=== PATIENT | female | born 1930 | race Caucasian/White ===

== ENCOUNTER 2017-02-14 08:00 | Outpatient (CLI) | payer MEDICARE, BC ==
[2017-02-14 19:16] LABS: BASOPHILS # (AUTO) 0.1 10^3/uL (0.0-0.1); BASOPHILS % (AUTO) 0.7 %; EOSINOPHILS # (AUTO) 0.1 10^3/uL (0.0-0.7); EOSINOPHILS % (AUTO) 1.4 %; HGB - HEMOGLOBIN 13.4 g/dL (12.0-16.0); LYMPHOCYTES # (AUTO) 2.7 10^3/uL (1.5-3.5); LYMPHOCYTES % (AUTO) 33.8 %; MEAN CORPUSCULAR HEMOGLOBIN 28.8 pg (27.0-31.0); MEAN CORPUSCULAR HGB CONC 31.8 g/dL (32.0-36.0); MEAN CORPUSCULAR VOLUME 90.6 fL (81.0-99.0); MEAN PLATELET VOLUME 9.2 fL (7.9-10.8); MONOCYTES # (AUTO) 0.6 10^3/uL (0.0-1.0); MONOCYTES % (AUTO) 6.8 %; NEUTROPHILS # (AUTO) 4.6 10^3/uL (1.5-6.6); NEUTROPHILS % (AUTO) 57.3 %; NUCLEATED RED BLOOD CELLS AUTO 0.1 /100WBC; RED BLOOD COUNT 4.63 10^6/uL (4.20-5.40); RED CELL DISTRIBUTION WIDTH 14.4 % (12.0-15.0)
[2017-02-14 19:20] LABS: ALBUMIN/GLOBULIN RATIO 1.3 (1.0-2.2); BILIRUBIN,TOTAL 0.6 mg/dL (0.2-1.0); CALCIUM 9.5 mg/dL (8.5-10.3); CREATININE 0.9 mg/dL (0.4-1.0); POTASSIUM 4.3 mmol/L (3.5-5.0)
[2017-02-14 19:38] LABS: THYROID STIMULATING HORMONE 2.35 uIU/mL (0.34-5.60)
== END 2017-02-14 08:01 | disposition home or self-care (01) ==
LOC: LAB.WCP 08:00
PROVIDERS: ATTEND Family Medicine
DX: R41.3 Other amnesia (principal); E03.9 Hypothyroidism, unspecified
CPT/HCPCS: 36415; 80053; 84439; 84443; 84481; 85025

== ENCOUNTER 2017-05-18 14:21 | Inpatient (IN) | payer MEDICARE, BC ==
--- NOTE | 2017-05-18 14:48 | ED Physician Documentation ---
PD HPI LOWER EXT INJURY - Stated complaint Stated Complaint: FALL LT HIP PX - Chief complaint Chief Complaint: Ext Problem - History obtained from History obtained from: Patient, Family () - History of Present Illness PD HPI LOW EXT INJURY LOCATION: Left, Hip Type of injury: Fall Where injury occurred: Street (she was walking from car into a business and tripped, falling to left hip. Denies other injury.) Timing - onset: How many minutes ago (30), Today Timing - duration: Minutes (30) Timing - details: Abrupt onset, Still present Worsened by: Moving, Palpating, Other (unable to put weight onto leg due to the pain) Associated symptoms: No: Weakness, Numbness Similar symptoms before: Has not had sx before Recently seen: Not recently seen Review of Systems Constitutional: denies: Fever, Chills Nose: denies: Rhinorrhea / runny nose, Congestion Throat: denies: Sore throat Cardiac: denies: Chest pain / pressure, Palpitations Respiratory: denies: Dyspnea, Cough GI: denies: Abdominal Pain, Nausea, Vomiting : denies: Dysuria, Frequency Skin: denies: Rash, Lesions, Abrasion (s), Laceration (s) Musculoskeletal: reports: Extremity pain. denies: Neck pain, Back pain Neurologic: denies: Generalized weakness, Focal weakness, Numbness, Altered mental status, Headache, Head injury Endocrine: denies: Easy bruising / bleeding Immunocompromised: denies: Immunocompromised PD PAST MEDICAL HISTORY - Past Medical History Cardiovascular: None Neuro: None Endocrine/Autoimmune: HyPOthyroidism GI: Hemorrhoids, Diverticulitis HEENT: None Musculoskeletal: Osteoarthritis - Past Surgical History Past Surgical History: Yes General: Cholecystectomy, Appendectomy, Bowel surgery Ortho: Knee replacement /[employer]UV[employer] LIAISON: Hysterectomy - Present Medications Home Medications: Ambulatory Orders Medication Instructions Recorded Confirmed Levothyroxine Sodium [Levoxyl] 75 mcg PO DAILY 08/14/13 05/18/17 Multivitamin [Multi-Vitamin Daily] 1 mg PO DAILY 04/07/14 05/18/17 - Allergies Allergies/Adverse Reactions: Allergies Allergy/AdvReac Type Severity Reaction Status Date / Time codeine AdvReac Intermediate gi problems Verified 05/18/17 14:32 - Social History Does the pt smoke?: No Smoking Status: Never smoker Does the pt drink ETOH?: No Does the pt have substance abuse?: No - Family History Family history: reports: Non contributory - Immunizations Immunizations are current?: Yes - POLST Patient has POLST: No PD ED PE NORMAL - Vitals Vital signs reviewed: Yes - General General: Alert and oriented X 3, No acute distress, Well developed/nourished - HEENT HEENT: Atraumatic, Pharynx benign - Neck Neck: Supple, no meningeal sign, No adenopathy - Cardiac Cardiac: RRR, No murmur - Respiratory Respiratory: Clear bilaterally, Other (no chestwall tenderness. ) - Abdomen Abdomen: Soft, Non tender - Female Female : Deferred - Rectal Rectal: Deferred - Back Back: No CVA TTP, No spinal TTP - Derm Derm: Normal color, Warm and dry - Extremities Extremities: No edema, No calf tenderness / cord, Other (Left lateral and posterior hip tenderness. Some ROM of the hip but hurts with movement. No obvious deformity. ) - Neuro Neuro: Alert and oriented X 3 (but some short term memory deficit c/w mild dementia. ), No motor deficit, Normal speech Eye Opening: Spontaneous Motor: Obeys Commands Verbal: Oriented GCS Score: 15 - Psych Psych: Normal mood, Normal affect Results - Vitals Vitals: Vital Signs - 24 hr 05/18/17 05/18/17 05/18/17 14:28 16:20 16:21 Temperature 36.4 C L Heart Rate 95 85 Respiratory 24 16 Rate Blood Pressure 215/160 H 152/85 H O2 Saturation 94 86 L 97 05/18/17 05/18/17 05/18/17 17:12 17:57 18:16 Temperature Heart Rate Respiratory Rate Blood Pressure O2 Saturation 97 96 97 Oxygen O2 Source Nasal cannula - Labs Labs: Laboratory Tests 05/18/17 05/18/17 05/18/17 15:23 15:23 15:23 WBC 8.5 RBC 4.62 Hgb 13.1 Hct 41.3 MCV 89.3 MCH 28.4 MCHC 31.8 L RDW 14.0 Plt Count 225 MPV 9.0 Neut # 5.7 Lymph # 2.1 Shackelford # 0.5 Eos # 0.1 Baso # 0.1 Absolute Nucleated RBC 0.01 Nucleated RBC % 0.1 PT 10.7 INR 0.9 APTT 26.1 Sodium 138 Potassium 3.9 Chloride 105 Carbon Dioxide 25 Anion Gap 8.0 BUN 12 Creatinine 0.9 Estimated GFR (MDRD) 60 L Glucose 93 Calcium 9.9 Magnesium 2.3 Total Bilirubin 0.4 AST 29 ALT 20 Alkaline Phosphatase 73 Total Protein 7.2 Albumin 4.2 Globulin 3.0 Albumin/Globulin Ratio 1.4 Lipase 24 - Rads (name of study) left femur Radiology: Prelim report reviewed (impacted femoral neck (subcapital) fracture, nondisplaced. ), EMP read contemporaneously pelvic CT Radiology: Prelim report reviewed (femoral neck fx, no pelvic fractures. ) PD MEDICAL DECISION MAKING - ED course Complexity details: reviewed results, re-evaluated patient, considered differential (Concern for hip fracture. She is also hurting in the posterior aspect of the hip and pelvis so I consider ramus or sacral fracture as well. I did a CT of the pelvis which did not show any other fractures. The terminal neck has a subcapital impacted fracture with nondisplacement and non- angulation. The patient is usually very active and healthy. Her says she has a little bit of dementia and is difficult for her to stay sedentary. As such fixation of the fracture will be appropriate and they are agreeable to this. I talked with Dr. Ayoub who is on-call for orthopedics and he defers to the hospitalist. I talked with Dr. Lemos who will admit the patient. Dr. Ayoub' s intention is to do surgery 730 tomorrow morning.), d/w patient Departure - Departure Disposition: 66 [facility] DC/Xfer Clinical Impression: Fall from slip, trip, or stumble Qualifiers: Encounter type: initial encounter Qualified Code(s): W01.0XXA - Fall on same level from slipping, tripping and stumbling without subsequent striking against object, initial encounter Femoral neck fracture Qualifiers: Encounter type: initial encounter Fracture type: closed Laterality: left Qualified Code(s): S72.002A - Fracture of unspecified part of neck of left femur , initial encounter for closed fracture Condition: Stable
[2017-05-18] MEDS ORDERED: HYDROmorphone 1 MG/ML SYRINGE IVP STA ×2 (15:05→15:52)
[2017-05-18] MEDS ORDERED: KETOROLAC 60 MG/2 ML VIAL IVP STA (15:53)
--- NOTE | 2017-05-18 16:33 | CT Report ---
EXAM: CT BONY PELVIS WITHOUT CONTRAST EXAM DATE: 05/18/2017 04:05 PM. CLINICAL HISTORY: Fall with pain to left ramus/pelvis. COMPARISON: None. TECHNIQUE: Thin-section axial images were acquired of the pelvis without contrast. Post-processing: C oronal and sagittal reformats. Other: None. In accordance with CT protocol optimization, one or more of the following dose reduction techniques w ere utilized for this exam: automated exposure control, adjustment of mA and/or KV based on patient s ize, or use of iterative reconstructive technique. FINDINGS: Bones: There is impacted left subcapital femoral neck fracture. No other focal bony abnormalities are seen. Sacroiliac Joints: No widening, erosions, or sclerosis. Symphysis Pubis: There is mild osteitis pubis. Right Hip: No evidence of dislocation. No significant degenerative disease. Left Hip: No evidence of dislocation. No significant degenerative disease. Musculature: Normal. No fatty atrophy. Pelvic Cavity: The visualized bowel, bladder, and reproductive organs are unremarkable on this noncon trast exam. Other: No lymphadenopathy. No free air or free fluid. The other visualized soft tissues are unremarka ble. IMPRESSION: There is impacted left subcapital femoral neck fracture. No evidence of dislocation. [facility] Referring Provider Line: [phone] SITE ID: [id number]
--- NOTE | 2017-05-18 16:36 | XRAY Report ---
EXAM: LEFT FEMUR RADIOGRAPHY EXAM DATE: 05/18/2017 03:48 PM. CLINICAL HISTORY: Fall, pain COMPARISON: None. TECHNIQUE: 2 views. FINDINGS: Bones: There is impacted subcapital femoral neck fracture. No evidence of distal fracture. Joints: No evidence of dislocation. Soft Tissues: Normal. No soft tissue swelling. IMPRESSION: 1. Impacted subcapital femoral neck fracture. 2. No evidence of distal fracture. [facility] Referring Provider Line: [phone] SITE ID: [id number]
[2017-05-18] MEDS ORDERED: ONDANSETRON 4 MG/2 ML VIAL IVP STA ×2 (16:45→17:29)
[2017-05-18] MEDS ORDERED: SODIUM CHLORIDE 0.9% 1,000 ML IV ONE (17:30)
[2017-05-18 17:39] LABS: BASOPHILS # (AUTO) 0.1 10^3/uL (0.0-0.1); BASOPHILS % (AUTO) 0.6 %; EOSINOPHILS # (AUTO) 0.1 10^3/uL (0.0-0.7); EOSINOPHILS % (AUTO) 1.4 %; HGB - HEMOGLOBIN 13.1 g/dL (12.0-16.0); LYMPHOCYTES # (AUTO) 2.1 10^3/uL (1.5-3.5); MEAN CORPUSCULAR HEMOGLOBIN 28.4 pg (27.0-31.0); MEAN CORPUSCULAR HGB CONC 31.8 g/dL (32.0-36.0); MEAN CORPUSCULAR VOLUME 89.3 fL (81.0-99.0); MONOCYTES # (AUTO) 0.5 10^3/uL (0.0-1.0); MONOCYTES % (AUTO) 6.5 %; NEUTROPHILS # (AUTO) 5.7 10^3/uL (1.5-6.6); NEUTROPHILS % (AUTO) 66.5 %; PLT - PLATELET COUNT 225 10^3/uL (130-450); RED BLOOD COUNT 4.62 10^6/uL (4.20-5.40); WHITE BLOOD COUNT 8.5 x10^3/uL (4.8-10.8)
[2017-05-18 17:46] LABS: INR 0.9 (0.8-1.2); PT - PROTHROMBIN TIME 10.7 secs (9.9-12.6)
[2017-05-18 17:51] LABS: ALBUMIN 4.2 g/dL (3.2-5.5); ALBUMIN/GLOBULIN RATIO 1.4 (1.0-2.2); BILIRUBIN,TOTAL 0.4 mg/dL (0.2-1.0); CALCIUM 9.9 mg/dL (8.5-10.3); CREATININE 0.9 mg/dL (0.4-1.0); MAGNESIUM 2.3 mg/dL (1.7-2.8); TOTAL PROTEIN 7.2 g/dL (6.7-8.2)
[2017-05-18] MEDS ORDERED: ACETAMINOPHEN 325 MG TABLET PO PRN (18:10)
[2017-05-18] MEDS ORDERED: SODIUM CHLORIDE FLUSH 0.9% 10 ML SYRINGE IVP PRN (18:10)
[2017-05-18] MEDS ORDERED: oxyCODONE 5 MG TABLET PO PRN (18:10)
[2017-05-18] MEDS ORDERED: ONDANSETRON 4 MG/2 ML VIAL IVP PRN (18:10)
[2017-05-18] MEDS ORDERED: KETOROLAC 15 MG/ML VIAL IVP PRN (18:18)
--- NOTE | 2017-05-18 18:19 | HISTORY & PHYSICAL EXAMINATION ---
Chief Complaint - Chief Complaint Chief Complaint: fall and left hip pain History of Present Illness - Admitted From Admitted From:: ER - History Obtained From History obtained from: pt's Exam Limitations: pt's some confusion - History of Present Illness HPI Comment/Other: This is a 87-year-old female with a past medical history significant for Dementia, Anxiety, hypothyroidism, osteoarthritis, who present ER for evaluation and treatment for injury from a fall at home. Pt is confused after pain medication, dilaudid was given. She can not provide medical history at this moment. I call pt's . He report pt had s trip then she had a fall on her left side hip area. There is no other injury. Pt can not walk after fall with extremely pain at her left hip and left femur. The report pt did not have any cardiac history, no hx of OR, CAD, or any stents. Her report she had very short memory as her sister, Otherwise she is healthy. Pt's afebrile, Lab test is unremarkable. CT of pelvis, Xray of femur reveals impacted subcapital femoral neck fracture. Dr. Ayoub is called. pt is planing to have surgery on tomorrow morning. 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 - Substance History Use: Uses substance without health or social issues: NONE Abuse: Recurrent use of substance despite neg consequences: NONE - POLST Patient has POLST: No POLST Status: Full Code Meds/Allgy - Home Medications Home Medications: Ambulatory Orders Medication Instructions Recorded Confirmed Levothyroxine Sodium [Levoxyl] 75 mcg PO QDAC 08/14/13 05/19/17 Multivitamin [Multi-Vitamin Daily] 1 tab PO DAILY 04/07/14 05/19/17 ALPRAZolam [Alprazolam] 0.25 mg PO BID PRN 05/19/17 05/19/17 Donepezil [Aricept] 5 mg PO DAILY 05/19/17 05/19/17 - Allergies Allergies/Adverse Reactions: Allergies Allergy/AdvReac Type Severity Reaction Status Date / Time codeine AdvReac Intermediate gi problems Verified 05/18/17 14:32 Review of Systems - Constitutional Constitutional: denies: Fever, Chills - Eyes Eyes: denies: Pain, Irritation, Amaurosis, Blurred vision, Field loss, Vision loss - Ears, Nose & Throat Ears, Nose & Throat: denies: Ear pain, Nasal discharge, Nosebleeds, Sore throat , Mouth lesions, Bleeding gums - Cardiovascular Cariovascular: denies: Irregular heart rate, Palpitations, Chest pain, Edema, Lightheadedness, Syncope, Exertional dyspnea, Decr. exercise tolerance - Respiratory Respiratory: denies: Cough, Sputum production, Wheezing, Snoring, Hemoptysis, Orthopnea, SOB at rest, SOB with exertion - Gastrointestinal Gastrointestinal: denies: Abdominal pain, Abdominal distention, Constipation, Diarrhea, Change in bowel habits, Rectal bleeding, Bloody stools, Nausea, Vomiting, Akhil blood emesis - Genitourinary Genitourinary: denies: Dysuria, Hematuria, Flank pain - Musculoskeletal Musculoskeletal: reports: Limited range of motion, Joint pain. denies: Muscle pain, Back pain, Muscle aches, Stiffness - Integumentary Integumentary: denies: Rash, Lesions, Dryness - Neurological Neurological: reports: Memory problems. denies: General weakness, Focal weakness, Headache, Dizziness, Numbness, Abnormal gait, Seizures, Incoordination , Slurred speech - Psychiatric Psychiatric: reports: Anxiety. denies: Depression, Suicidal, Delusions, Hallucinations, Homicidal - Endocrine Endocrine: denies: Polyuria, Polydypsia - Hematologic/Lymphatic Hematologic/Lymphatic: denies: Anemia, Lymphadenopathy, Bleeding tendencies Exam - Vital Signs Reviewed Vital Signs: Yes Vital Signs: Vital Signs x48h Temp Pulse Resp BP Pulse Ox 05/18/17 18:16 97 05/18/17 17:57 96 05/18/17 17:12 97 05/18/17 16:21 97 05/18/17 16:20 85 16 152/85 H 86 L 05/18/17 14:28 36.4 C L 95 24 215/160 H 94 - Physical Exam General Appearance: positive: No acute distress, Alert. negative: Lethargic Eyes Bilateral: positive: Normal inspection, PERRL, No lid inflammation, Conjunctivae nml ENT: positive: ENT inspection nml, Pharynx nml, No signs of dehydration. negative: Purulent nasal drainage, Pharyngeal erythema, Oral lesions Neck: positive: Nml inspection, Thyroid nml, No JVD, Trachea midline. negative : Thyromegaly, Lymphadenopathy (R), Lymphadenopathy (L), Stiff neck, Carotid bruit, Swelling/bruising, Tracheal deviation Respiratory: positive: Chest non-tender, No respiratory distress, Breath sounds nml. negative: Wheezes, Rales, Rhonchi Cardiovascular: positive: Regular rate & rhythm, No murmur, No gallop. negative : Irregularly irregular, Extrasystoles, Tachycardia, Bradycardia, Systolic murmur, Diastolic murmur Peripheral Pulses: positive: 2+ Abdomen: positive: Non-tender, No organomegaly, Nml bowel sounds, No distention. negative: Tenderness, Guarding, Rebound Back: positive: Nml inspection. negative: CVA tenderness (R), CVA tenderness (L ) Skin: positive: Color nml, No rash, Warm, Dry. negative: Cyanosis, Diaphoresis , Pallor Extremities: positive: Non-tender. negative: Calf tenderness, Joint swelling, Lyric's sign/cords Neurologic/Psychiatric: positive: Sensation nml. negative: Weakness, Sensory loss, Facial droop, Slurred/abnml speech, Depressed mood/affect Conclusion/Plan - Problem List (1) Femoral neck fracture Conclusion/Plan: from fall, orthopedics surgeon is consulted, pt is planning to have surgery on tomorrow morning pain control NPO after midnight IVF follow up the surgery Qualifiers: Encounter type: initial encounter Fracture type: closed Laterality: left Qualified Code(s): S72.002A - Fracture of unspecified part of neck of left femur, initial encounter for closed fracture (2) Dementia Conclusion/Plan: stable, resume of home Aricept vital and neuro check (3) Anxiety Conclusion/Plan: resume home Ativan monitor pt, adjust meds as needed (4) Hypothyroidism Conclusion/Plan: resume home and test TSH, and follow up (5) Osteoarthritis Conclusion/Plan: stable, pain control. (6) DVT prophylaxis Conclusion/Plan: SCD now. After surgery, will put Aspirin 325 mg bid to pt (7) Full code status Conclusion/Plan: called pt's , it is confirmed by her pt has full code status - Lab Results Fish Bones: 05/19/17 05:27 05/19/17 05:27 Core Measures - Anticipated LOS I expect patient to be DC'd or transferred within 96 hours.: Yes
--- NOTE | 2017-05-18 18:20 | XRAY Preliminary Report ---
Exam: XR CHEST 1 VIEW X-RAY IMPRESSION: 1. Nonspecific bronchial wall thickening could represent bronchitis or reactive airways disease. 2. No effusions or pneumothorax. No focal consolidation. [facility] SITE ID: [id number]
--- NOTE | 2017-05-18 18:22 | PROVIDER PROGRESS NOTE ---
Subjective - Prog Note Date Prog Note Date: 05/18/17 Prog Note Time: 18:20 - Subjective Subjective: Patient had a GLF, sustaining injury to left side. Unable to stand to stand or weight bear on left side. No distal weakness/numbness. Taken to ED where XR show an impacted left femoral neck hip fracture. Objective - Vital Signs/Intake & Output Vital Signs: Vital Signs x48h Temp Pulse Resp BP Pulse Ox 05/18/17 18:16 97 05/18/17 17:57 96 05/18/17 17:12 97 05/18/17 16:21 97 05/18/17 16:20 85 16 152/85 H 86 L 05/18/17 14:28 36.4 C L 95 24 215/160 H 94 - Lab Results Fish Bones: 05/18/17 15:23 05/18/17 15:23 Other Labs: Lab Results x24hrs 05/18/17 05/18/17 05/18/17 Range/Units 15:23 15:23 15:23 WBC 8.5 (4.8-10.8) x10^3/uL RBC 4.62 (4.20-5.40) 10^6/uL Hgb 13.1 (12.0-16.0) g/dL Hct 41.3 (37.0-47.0) % MCV 89.3 (81.0-99.0) fL MCH 28.4 (27.0-31.0) pg MCHC 31.8 L (32.0-36.0) g/dL RDW 14.0 (12.0-15.0) % Plt Count 225 (130-450) 10^3/uL MPV 9.0 (7.9-10.8) fL Neut # 5.7 (1.5-6.6) 10^3/uL Lymph # 2.1 (1.5-3.5) 10^3/uL Bibb # 0.5 (0.0-1.0) 10^3/uL Eos # 0.1 (0.0-0.7) 10^3/uL Baso # 0.1 (0.0-0.1) 10^3/uL Absolute Nucleated RBC 0.01 x10^3/uL Nucleated RBC % 0.1 /100WBC PT 10.7 (9.9-12.6) secs INR 0.9 (0.8-1.2) APTT 26.1 (24.9-33.3) secs Sodium 138 (135-145) mmol/L Potassium 3.9 (3.5-5.0) mmol/L Chloride 105 (101-111) mmol/L Carbon Dioxide 25 (21-32) mmol/L Anion Gap 8.0 (6-13) BUN 12 (6-20) mg/dL Creatinine 0.9 (0.4-1.0) mg/dL Estimated GFR (MDRD) 60 L (>89) Glucose 93 (70-100) mg/dL Calcium 9.9 (8.5-10.3) mg/dL Magnesium 2.3 (1.7-2.8) mg/dL Total Bilirubin 0.4 (0.2-1.0) mg/dL AST 29 (10-42) IU/L ALT 20 (10-60) IU/L Alkaline Phosphatase 73 (42-121) IU/L Total Protein 7.2 (6.7-8.2) g/dL Albumin 4.2 (3.2-5.5) g/dL Globulin 3.0 (2.1-4.2) g/dL Albumin/Globulin Ratio 1.4 (1.0-2.2) Lipase 24 (22-51) U/L - Diagnostic Imaging Diagnostic Imaging Comments: XR show impacted left femoral neck hip fracture - Other Results/Comments Other Results/Comments: EXAM: Painful left hip motion. Minimal leg shortening or malrotation. Moves toes ok. Sensation intact. Good cap filling Assessment/Plan - Problem List (1) Femoral neck fracture Impression: PLAN: after medical evaluation and stabilization, plan multiple cannulated screw fixation of left hip fracture in AM. Will schedule Mon AM. Will discuss options with patient in AM and obtain surgical consent preop. Qualifiers: Encounter type: initial encounter Fracture type: closed Laterality: left Qualified Code(s): S72.002A - Fracture of unspecified part of neck of left femur, initial encounter for closed fracture
--- NOTE | 2017-05-18 18:59 | XRAY Report ---
EXAM: CHEST RADIOGRAPHY EXAM DATE: 05/18/2017 06:01 PM. CLINICAL HISTORY: Hip fracture/fall. COMPARISON: None. TECHNIQUE: 1 view. FINDINGS: Lungs/Pleura: No focal opacities evident. No pleural effusion. No pneumothorax. Bronchial wall thicke blake. Mediastinum: Within exam limitations, the cardiomediastinal contour is normal. Other: None. IMPRESSION: 1. Nonspecific bronchial wall thickening could represent bronchitis or reactive airways disease. 2. No effusions or pneumothorax. No focal consolidation. [facility] Referring Provider Line: [phone] SITE ID: [id number]
[2017-05-18] MEDS: SODIUM CHLORIDE 0.9% 1,000 ML IV SCH (19:09)
[2017-05-18 19:11] LABS: BILIRUBIN,URINE NEGATIVE (NEGATIVE); GLUCOSE, URINE (UA) NEGATIVE (NEGATIVE); KETONES,URINE (UA) NEGATIVE (NEGATIVE); LEUKOCYTE ESTERASE, URINE NEGATIVE (NEGATIVE); NITRITE,URINE NEGATIVE (NEGATIVE); OCCULT BLOOD,URINE TRACE-LYSE (NEGATIVE); PROTEIN,URINE NEGATIVE (NEGATIVE); UROBILINOGEN,URINE 0.2 (NORMAL) E.U./dL (NORMAL)
[2017-05-18 19:12] LABS: CLARITY,URINE CLEAR (CLEAR)
[2017-05-18] MEDS ORDERED: PROMETHAZINE INJ 12.5 MG in SODIUM CHLORIDE 0.9% 50 ML IV PRN (19:40)
[2017-05-18 20:16] LABS: THYROID STIMULATING HORMONE 2.55 uIU/mL (0.34-5.60)
[2017-05-18 20:18] LABS: FREE T4 (FREE THYROXINE) 1.05 ng/dL (0.58-1.64)
[2017-05-18] MEDS ORDERED: ZIPRASIDONE 20 MG VIAL IM PRN (21:16)
[2017-05-18] MEDS: SODIUM CHLORIDE FLUSH 0.9% 10 ML SYRINGE IVP SCH (21:25)
[2017-05-18] MEDS: MORPHINE 2 MG/ML CARPUJECT IVP PRN (21:25)
[2017-05-18] MEDS: LORazepam 2 MG/ML VIAL IVP PRN (21:25)
[2017-05-19] MEDS: SODIUM CHLORIDE 0.9% 1,000 ML IV SCH (05:01)
[2017-05-19 05:59] LABS: BASOPHILS # (AUTO) 0.1 10^3/uL (0.0-0.1); BASOPHILS % (AUTO) 0.9 %; EOSINOPHILS # (AUTO) 0.1 10^3/uL (0.0-0.7); EOSINOPHILS % (AUTO) 1.2 %; HGB - HEMOGLOBIN 11.8 g/dL (12.0-16.0); LYMPHOCYTES # (AUTO) 1.7 10^3/uL (1.5-3.5); LYMPHOCYTES % (AUTO) 15.8 %; MEAN CORPUSCULAR HEMOGLOBIN 28.7 pg (27.0-31.0); MEAN CORPUSCULAR HGB CONC 32.5 g/dL (32.0-36.0); MEAN CORPUSCULAR VOLUME 88.2 fL (81.0-99.0); MEAN PLATELET VOLUME 8.5 fL (7.9-10.8); MONOCYTES # (AUTO) 0.6 10^3/uL (0.0-1.0); MONOCYTES % (AUTO) 5.4 %; NEUTROPHILS # (AUTO) 8.4 10^3/uL (1.5-6.6); NEUTROPHILS % (AUTO) 76.7 %; PLT - PLATELET COUNT 168 10^3/uL (130-450); RED BLOOD COUNT 4.12 10^6/uL (4.20-5.40); RED CELL DISTRIBUTION WIDTH 13.8 % (12.0-15.0); WHITE BLOOD COUNT 10.9 x10^3/uL (4.8-10.8)
[2017-05-19 06:05] LABS: ALBUMIN 3.2 g/dL (3.2-5.5); ALBUMIN/GLOBULIN RATIO 1.1 (1.0-2.2); BILIRUBIN,TOTAL 0.9 mg/dL (0.2-1.0); CALCIUM 8.8 mg/dL (8.5-10.3); CREATININE 0.8 mg/dL (0.4-1.0); TOTAL PROTEIN 6.1 g/dL (6.7-8.2)
[2017-05-19] MEDS: SODIUM CHLORIDE FLUSH 0.9% 10 ML SYRINGE IVP SCH ×3 (07:04→21:57)
[2017-05-19] MEDS ORDERED: ceFAZolin 2 GM/50 ML 2 GM/50 ML BAG IV SCH (08:00)
[2017-05-19] MEDS ORDERED: BUPIVACAINE 0.25%-EPI 1:200000 PF 30 ML VIAL SUBQ ONE ×2 (08:51→09:55)
[2017-05-19] MEDS ORDERED: LEVOTHYROXINE 75 MCG TABLET PO SCH (09:00)
--- NOTE | 2017-05-19 09:16 | CONSULTATION NOTE ---
DATE OF SERVICE: 05/19/2017 Physician: Joo Ayoub MD ORTHOPEDIC CONSULTATION REFERRING PHYSICIAN: Dr. Sheldon of the emergency room. HISTORY OF PRESENT ILLNESS: The patient is an 87-year-old, woman who apparently had a ground level fall on the day of her admission, injuring her left hip. She was unable to stand or weight bear on her left lower extremity. There was no loss of consciousness or other injuries. No prior problems with her hip. She was taken to the emergency room here at [facility][1], where her evaluation included x-rays showing an impacted transverse left femoral neck fracture. This was confirmed with a followup CT scan of her pelvis. The patient, previous to this injury, was ambulatory and living with her at home. There has been no distal weakness and numbness in the lower extremity. PHYSICAL EXAMINATION: The patient is resting comfortably in bed. She does have some tenderness on palpation over the left anterior groin, less tenderness laterally about the left hip. Hip range of motion is painful as well. There is no obvious shortening of her left lower extremity. The patient moves her toes well. Sensation intact throughout the lower extremity. Good capillary filling noted. X-rays that were taken of her left hip do show a minimally displaced impacted transverse femoral neck fracture of her left hip. ASSESSMENT 1. Closed, nondisplaced, impacted left femoral neck hip fracture. 2. History of hypothyroidism. PLAN: I discussed treatment options with the patient and her . They are in agreement that we should proceed with surgical intervention. Our plan then would be to put in several short threaded cannulated screws to fix her fracture in place. Risks and benefits of surgery including infection, blood loss, nerve damage, malunion, nonunion, avascular necrosis of the femoral head and lower extremity deep venous thromboses were discussed. They appear to understand the potential risks and benefits. All questions were answered. Consent has been signed. The leg has been marked. Plan then on proceeding with surgery later this morning. TD: 05/19/2017 10:14
[2017-05-19] MEDS ORDERED: LACTATED RINGERS 1,000 ML IV ONE ×3 (09:42→10:33)
[2017-05-19] MEDS ORDERED: ceFAZolin 1 GM VIAL IV ONE (09:55)
[2017-05-19] MEDS ORDERED: PROPOFOL 200 MG/20 ML VIAL IVP ONE (09:55)
[2017-05-19] MEDS ORDERED: ONDANSETRON 4 MG/2 ML VIAL IVP ONE (09:55)
[2017-05-19] MEDS ORDERED: DEXAMETHASONE 4 MG/ML VIAL IVP ONE (09:55)
[2017-05-19] MEDS ORDERED: ePHEDrine 50 MG/ML AMP IVP ONE (09:55)
[2017-05-19] MEDS ORDERED: fentaNYL 100 MCG/2 ML VIAL IVP ONE (09:55)
--- NOTE | 2017-05-19 10:06 | OPERATIVE REPORT ---
Operative Report - General Admit Date: 05/18/17 Procedure Date: 05/19/17 Planned Procedure: Multiple cannulated screw fixationof left hip fracture Pre-Op Diagnosis: Impacted left femoral neck hip fracture Procedure Performed: Closed reduction and multiple cannulated screw fixation of left hip fracture Post Op Diagnosis: Same - Procedure Note Primary Surgeon: David Ayoub Anesthesia Provider: Monika Bain Anesthesia Technique: General ET tube, General LMA IV Fluids (mL): 500 Estimated Blood Loss (mL): 20 Complications: None
[2017-05-19] MEDS: ACETAMINOPHEN 1,000 MG/100 ML 100 ML IV PRN (10:07)
[2017-05-19] MEDS ORDERED: PROCHLORPERAZINE 10 MG/2 ML VIAL IVP PRN (10:07)
[2017-05-19] MEDS ORDERED: SODIUM CHLORIDE 0.9% 1,000 ML IV SCH (11:00)
--- NOTE | 2017-05-19 11:01 | XRAY Report ---
DATE OF SERVICE: 05/19/2017 INTRAOPERATIVE LEFT HIP: 05/19/2017 CLINICAL INDICATION: Hip pinning. FINDINGS: Two intraoperative matrix view of the left hip demonstrate two screws transfixing the impacted left femoral neck fracture. Ten seconds of fluoroscopy time was provided to Dr. Ayoub; two spot images obtained. IMPRESSION: INTRAOPERATIVE IMAGING OF LEFT HIP FRACTURE FIXATION. TD: 05/19/2017 12:00
--- NOTE | 2017-05-19 12:16 | PROCEDURE REPORT ---
DATE OF SERVICE: 05/19/2017 Physician: Joo Ayoub MD DATE: 05/19/2017 PREOPERATIVE DIAGNOSIS: Impacted left femoral neck hip fracture. POSTOPERATIVE DIAGNOSIS: Impacted left femoral neck hip fracture. PROCEDURE PERFORMED: Closed reduction and multiple cannulated screw fixation of left hip fracture. SURGEON: Joo Ayoub MD. ANESTHESIA: General with LMA. DESCRIPTION OF PROCEDURE: The patient was taken to the operating room on the morning of 05/19/2017, where she was placed under a general anesthetic with LMA without any problems. She was then transferred supine onto the fracture table. Her right unfractured lower extremity was then widely flexed and abducted on the right side and held in the well leg zamora. Her left fractured extremity was then placed in the longitudinal traction with the leg internally rotated about 20 degrees. Fluoroscopic views in AP and lateral projection showed good reduction of her fracture and good visualization of the proximal femur and hip joint. We then prepped and draped the lateral aspect of her left hip in the usual fashion for our procedure. A 2 cm skin incision was then made over the lateral proximal thigh. Using fluoroscopic visualization, we were able to position and advanced a threaded tip guide pin with power up to the proximal femur and femoral neck and into the femoral head within a few millimeters of the subchondral bone. The position of the pin was checked and confirmed with the fluoroscopic views in AP and lateral projection. Satisfied with the placement of our first guide pin, we then used the multiple pin guide to place our second threaded tip guidewire in the near parallel alignment. Both superior and slightly anterior to our first pin. Fluoroscopic views showed again that both pins now are in a good position and in the proper depth to within a few millimeters of the subchondral bone. The direct measuring guide was used and we determined we did use a short threaded 16 mm of length 7.3 mm cannulated screw that was 105 mm in length; a second cannulated screw, again, a short threaded, 16 mm length, 7.3 mm cannulated screw x100 mm in total length. We used the cannulated drill to drill over inserted guide pins to perforate the lateral femoral cortex and both pins. Finally, the appropriate screw was then threaded over our guide pin. We obtained good purchase in the more superior and anterior screw. Still obtained reasonable purchase with the more inferior screw as well. X-rays taken in AP and lateral projection, showed again a good position of our fracture with good alignment. Satisfactory placement of hardware as well. We then removed our guide pins from the tip screws. irrigated the wound thoroughly with saline. I then closed the wound in layers using 0 Vicryl to close the fascia henrique layer; 2-0 Vicryl in a very simple stitch to close the subcutaneous tissues; finally skin jesusita used to approximate the skin edge. We then washed the wounds and applied Xeroform gauze, fluffs and a Tegaderm dressing was applied. It should be noted before we did apply the dressing, we did inject approximately 12 mL of 0.25% Marcaine with epinephrine about the incision to help with postoperative pain control. The patient, after the wound was dressed, was then transferred off the fracture onto her bed and taken to recovery room in satisfactory condition. ESTIMATED BLOOD LOSS: 20 mL. REPLACEMENT: 500 mL Crystalloid. INTRAOPERATIVE COMPLICATIONS: None. PLAN: The patient may be ambulatory with walker, weightbearing as tolerated on her left lower extremity, likely transfer to a hip rehabilitation center in the next 2 days. TD: 05/19/2017 13:15
[2017-05-19] MEDS: ASPIRIN 325 MG TABLET PO SCH ×2 (14:19→21:57)
[2017-05-19] MEDS: DONEPEZIL 5 MG TABLET PO SCH (14:19)
[2017-05-19] MEDS: MULTIVITAMIN TABLET PO SCH (14:20)
[2017-05-19] MEDS: POLYETHYLENE GLYCOL 3350 17 GM PACKET PO SCH (14:20)
[2017-05-19] MEDS: FAMOTIDINE 20 MG TABLET PO SCH (14:20)
--- NOTE | 2017-05-19 15:09 | PROVIDER PROGRESS NOTE ---
Subjective - Prog Note Date Prog Note Date: 05/19/17 - Subjective Pt reports feeling: Improved Subjective: Pt had surgery on this morning. pt report her's pain is great improved. But pt has still some confusion. Pt denies other compliant but state she want to go home. Current Medications - Current Medications Current Medications: Active Medications Acetaminophen (Tylenol) 650 - 975 mg PO Q4HR PRN PRN Reason: PAIN Aspirin (Hao) 325 mg PO BID [facility] Last Admin: 05/19/17 14:19 Dose: 325 mg Docusate Sodium (Colace 100mg Capsule) 100 mg PO BID PRN PRN Reason: Constipation Donepezil HCl (Aricept) 5 mg PO DAILY [facility] Last Admin: 05/19/17 14:19 Dose: 5 mg Famotidine (Pepcid) 20 mg PO DAILY [facility] Last Admin: 05/19/17 14:20 Dose: Not Given Cefazolin Sodium/Dextrose (Ancef 2 Gm/50 Ml) 2 gm in 50 mls @ 100 mls/hr IV Q8H [facility] Stop: 05/20/17 00:29 Acetaminophen (Ofirmev) 100 mls @ 400 mls/hr IV Q6HR PRN PRN Reason: PAIN Last Admin: 05/19/17 10:07 Dose: 0 mls Sodium Chloride (Normal Saline 0.9%) 1,000 mls @ 100 mls/hr IV .Q10H [facility] Levothyroxine Sodium (Synthroid) 75 mcg PO QDAC [facility] Lorazepam (Ativan Inj (Vial)) 0.5 mg IVP Q2H PRN PRN Reason: Anxiety Last Admin: 05/18/17 21:25 Dose: 0.5 mg Morphine Sulfate (Morphine (Carpuject)) 2 mg IVP Q2HR PRN PRN Reason: Pain 8 to 10 Last Admin: 05/18/17 21:25 Dose: 2 mg Multivitamins (Theragran) 1 tab PO DAILYWM [facility] Last Admin: 05/19/17 14:20 Dose: Not Given Ondansetron HCl (Zofran Inj) 4 mg IVP Q6HR PRN PRN Reason: Nausea / Vomiting Last Admin: 05/18/17 19:09 Dose: 4 mg Oxycodone/Acetaminophen (Percocet 5 Mg/325 Mg) 1 tab PO Q4HR PRN PRN Reason: PAIN Polyethylene Glycol (Miralax) 17 gm PO DAILY [facility] Last Admin: 05/19/17 14:20 Dose: Not Given Prochlorperazine Edisylate (Compazine Inj) 10 mg IVP Q6HR PRN PRN Reason: Nausea / Vomiting Senna (Senokot) 17.2 mg PO Q12H PRN PRN Reason: Constipation Sodium Chloride (Normal Saline Flush 0.9%) 10 ml IVP Q8HR [facility] Last Admin: 05/19/17 14:21 Dose: Not Given Sodium Chloride (Normal Saline Flush 0.9%) 10 ml IVP PRN PRN PRN Reason: NEEDED PER PROVIDER ORDERS Sterile Water (Sterile Water) 10 ml IV ONCE PRN PRN Reason: TO BE USED A DILUENT Stop: 05/19/17 21:15 Ziprasidone (Geodon Im) 10 mg IM ONCE PRN PRN Reason: Agitation Stop: 05/19/17 21:15 Zolpidem Tartrate (Ambien) 5 mg PO QPM PRN PRN Reason: Insomnia Levothyroxine Sodium [Levoxyl] 75 mcg PO QDAC 08/14/13 Multivitamin [Multi-Vitamin Daily] 1 tab PO DAILY 04/07/14 ALPRAZolam [Alprazolam] 0.25 mg PO BID PRN 05/19/17 Donepezil [Aricept] 5 mg PO DAILY 05/19/17 Objective - Vital Signs/Intake & Output Reviewed Vital Signs: Yes Vital Signs: Vital Signs x48h Temp Pulse Resp BP Pulse Ox 05/19/17 13:57 36.5 C 95 19 149/76 H 05/19/17 13:14 36.3 C L 88 16 134/72 H 95 05/19/17 10:40 97 05/19/17 10:35 100 05/19/17 10:30 100 05/19/17 10:25 100 05/19/17 10:20 100 05/19/17 10:15 100 05/19/17 10:10 100 05/19/17 10:04 99 05/19/17 08:15 37.4 C 77 18 135/57 H 94 05/19/17 08:00 36.7 C 78 120/53 L 93 Intake & Output: Intake & Output 05/16/17 05/17/17 05/18/1726/18 23:59 23:59 23:59 23:59 Intake Total 1000 1226.667 Balance 1000 1226.667 - Objective General Appearance: positive: No acute distress, Alert. negative: Lethargic Eyes Bilateral: positive: Normal inspection, PERRL, No lid inflammation, Conjunctivae nml ENT: positive: ENT inspection nml, Pharynx nml, No signs of dehydration. negative: Purulent nasal drainage, Pharyngeal erythema, Oral lesions Neck: positive: Nml inspection, Thyroid nml, No JVD, Trachea midline. negative : Thyromegaly, Lymphadenopathy (R), Lymphadenopathy (L), Stiff neck, Carotid bruit, Swelling/bruising, Tracheal deviation Respiratory: positive: Chest non-tender, No respiratory distress, Breath sounds nml. negative: Wheezes, Rales, Rhonchi Cardiovascular: positive: Regular rate & rhythm, No murmur, No gallop. negative : Irregularly irregular, Extrasystoles, Tachycardia, Bradycardia, Systolic murmur, Diastolic murmur Peripheral Pulses: 2+ Radial (R), 2+ Radial (L), 2+ Dorsalis pedis (R), 2+ Dorsalis pedis (L) Abdomen: positive: Non-tender, No organomegaly, Nml bowel sounds, No distention. negative: Tenderness, Guarding, Rebound, Abnml bowel sounds Back: positive: Nml inspection. negative: CVA tenderness (R), CVA tenderness (L ) Skin: positive: Color nml, No rash, Warm, Dry. negative: Cyanosis, Diaphoresis , Pallor, Skin rash Extremities: positive: Non-tender, Full ROM, Nml appearance. negative: Calf tenderness, Joint swelling, Lyric's sign/cords Neurologic/Psychiatric: positive: Sensation nml. negative: Sensory loss, Facial droop, Slurred/abnml speech, Depressed mood/affect - Lab Results Fish Bones: 05/19/17 05:27 05/19/17 05:27 Other Labs: Lab Results x24hrs 05/19/17 05/19/17 05/19/17 Range/Units 05:27 05:27 05:27 WBC 10.9 H (4.8-10.8) x10^3/uL RBC 4.12 L (4.20-5.40) 10^6/uL Hgb 11.8 L (12.0-16.0) g/dL Hct 36.3 L (37.0-47.0) % MCV 88.2 (81.0-99.0) fL MCH 28.7 (27.0-31.0) pg MCHC 32.5 (32.0-36.0) g/dL RDW 13.8 (12.0-15.0) % Plt Count 168 (130-450) 10^3/uL MPV 8.5 (7.9-10.8) fL Neut # 8.4 H (1.5-6.6) 10^3/uL Lymph # 1.7 (1.5-3.5) 10^3/uL [place] # 0.6 (0.0-1.0) 10^3/uL Eos # 0.1 (0.0-0.7) 10^3/uL Baso # 0.1 (0.0-0.1) 10^3/uL Absolute Nucleated RBC 0.00 x10^3/uL Nucleated RBC % 0.0 /100WBC Sodium 138 (135-145) mmol/L Potassium 4.0 (3.5-5.0) mmol/L Chloride 105 (101-111) mmol/L Carbon Dioxide 25 (21-32) mmol/L Anion Gap 8.0 (6-13) BUN 13 (6-20) mg/dL Creatinine 0.8 (0.4-1.0) mg/dL Estimated GFR (MDRD) 68 L (>89) Glucose 108 H (70-100) mg/dL Calcium 8.8 (8.5-10.3) mg/dL Total Bilirubin 0.9 (0.2-1.0) mg/dL AST 83 H (10-42) IU/L ALT 67 H (10-60) IU/L Alkaline Phosphatase 60 (42-121) IU/L Troponin I (<0.49) ng/mL Total Protein 6.1 L (6.7-8.2) g/dL Albumin 3.2 (3.2-5.5) g/dL Globulin 2.9 (2.1-4.2) g/dL Albumin/Globulin Ratio 1.1 (1.0-2.2) TSH 1.30 (0.34-5.60) uIU/mL 05/18/17 Range/Units 18:40 WBC (4.8-10.8) x10^3/uL RBC (4.20-5.40) 10^6/uL Hgb (12.0-16.0) g/dL Hct (37.0-47.0) % MCV (81.0-99.0) fL MCH (27.0-31.0) pg MCHC (32.0-36.0) g/dL RDW (12.0-15.0) % Plt Count (130-450) 10^3/uL MPV (7.9-10.8) fL Neut # (1.5-6.6) 10^3/uL Lymph # (1.5-3.5) 10^3/uL [place] # (0.0-1.0) 10^3/uL Eos # (0.0-0.7) 10^3/uL Baso # (0.0-0.1) 10^3/uL Absolute Nucleated RBC x10^3/uL Nucleated RBC % /100WBC Sodium (135-145) mmol/L Potassium (3.5-5.0) mmol/L Chloride (101-111) mmol/L Carbon Dioxide (21-32) mmol/L Anion Gap (6-13) BUN (6-20) mg/dL Creatinine (0.4-1.0) mg/dL Estimated GFR (MDRD) (>89) Glucose (70-100) mg/dL Calcium (8.5-10.3) mg/dL Total Bilirubin (0.2-1.0) mg/dL AST (10-42) IU/L ALT (10-60) IU/L Alkaline Phosphatase (42-121) IU/L Troponin I < 0.04 (<0.49) ng/mL Total Protein (6.7-8.2) g/dL Albumin (3.2-5.5) g/dL Globulin (2.1-4.2) g/dL Albumin/Globulin Ratio (1.0-2.2) TSH (0.34-5.60) uIU/mL Assessment/Plan - Problem List (1) Femoral neck fracture Impression: (1) Femoral neck fracture Conclusion/Plan: pt has surgery on this morning. pt state her pain is well controlled. It seems pt is some confused may due to just post status of surgery. follow up surgeon's recommendation continue PT/OT pain control resume diet add DVT prophylaxis from fall, orthopedics surgeon is consulted, pt is planning to have surgery on tomorrow morning pain control NPO after midnight IVF follow up the surgery (2) Dementia Conclusion/Plan: confused neuro check stable, resume of home Aricept vital and neuro check (3) Anxiety Conclusion/Plan: resume home Ativan monitor pt, adjust meds as needed (4) Hypothyroidism Conclusion/Plan: TSH normal, continue home meds resume home and test TSH, and follow up (5) Osteoarthritis Conclusion/Plan: stable, pain control. Qualifiers: Encounter type: initial encounter Fracture type: closed Laterality: left Qualified Code(s): S72.002A - Fracture of unspecified part of neck of left femur, initial encounter for closed fracture
[2017-05-19] MEDS: LORazepam 2 MG/ML VIAL IVP PRN ×3 (16:39→23:59)
[2017-05-19] MEDS: ceFAZolin 2 GM/50 ML 2 GM/50 ML BAG IV SCH ×2 (16:39→23:58)
[2017-05-19] MEDS: MORPHINE 2 MG/ML CARPUJECT IVP PRN (20:47)
[2017-05-19] MEDS ORDERED: ZIPRASIDONE 20 MG VIAL IM ONE (21:26)
[2017-05-19] MEDS ORDERED: WATER FOR INJECTION,STERILE 10 ML ONE (21:28)
[2017-05-19] MEDS: SODIUM CHLORIDE FLUSH 0.9% 10 ML SYRINGE IVP PRN (23:57)
[2017-05-20] MEDS: SODIUM CHLORIDE FLUSH 0.9% 10 ML SYRINGE IVP PRN (01:18)
[2017-05-20] MEDS: MORPHINE 2 MG/ML CARPUJECT IVP PRN ×3 (01:18→22:05)
[2017-05-20] MEDS: SODIUM CHLORIDE FLUSH 0.9% 10 ML SYRINGE IVP SCH ×3 (06:22→20:20)
[2017-05-20] MEDS: LEVOTHYROXINE 75 MCG TABLET PO SCH (06:48)
[2017-05-20] MEDS ORDERED: SODIUM CHLORIDE FLUSH 0.9% 10 ML SYRINGE ONE (06:52)
[2017-05-20 06:53] LABS: BASOPHILS # (AUTO) 0.1 10^3/uL (0.0-0.1); BASOPHILS % (AUTO) 0.5 %; EOSINOPHILS # (AUTO) 0.1 10^3/uL (0.0-0.7); EOSINOPHILS % (AUTO) 1.3 %; HGB - HEMOGLOBIN 12.1 g/dL (12.0-16.0); LYMPHOCYTES # (AUTO) 1.3 10^3/uL (1.5-3.5); LYMPHOCYTES % (AUTO) 10.9 %; MEAN CORPUSCULAR HEMOGLOBIN 28.4 pg (27.0-31.0); MEAN CORPUSCULAR HGB CONC 31.5 g/dL (32.0-36.0); MEAN CORPUSCULAR VOLUME 90.1 fL (81.0-99.0); MEAN PLATELET VOLUME 8.5 fL (7.9-10.8); MONOCYTES # (AUTO) 0.9 10^3/uL (0.0-1.0); MONOCYTES % (AUTO) 7.9 %; NEUTROPHILS # (AUTO) 9.4 10^3/uL (1.5-6.6); NEUTROPHILS % (AUTO) 79.4 %; PLT - PLATELET COUNT 163 10^3/uL (130-450); RED BLOOD COUNT 4.24 10^6/uL (4.20-5.40); RED CELL DISTRIBUTION WIDTH 14.2 % (12.0-15.0); WHITE BLOOD COUNT 11.8 x10^3/uL (4.8-10.8)
[2017-05-20 07:05] LABS: ALBUMIN 3.5 g/dL (3.2-5.5); ALBUMIN/GLOBULIN RATIO 1.2 (1.0-2.2); BILIRUBIN,TOTAL 1.4 mg/dL (0.2-1.0); CALCIUM 8.9 mg/dL (8.5-10.3); CREATININE 0.6 mg/dL (0.4-1.0); TOTAL PROTEIN 6.5 g/dL (6.7-8.2)
[2017-05-20] MEDS ORDERED: AZITHROMYCIN 250 MG TABLET PO SCH (08:00)
[2017-05-20] MEDS: diltiaZEM 30 MG TABLET PO SCH ×3 (08:41→20:20)
[2017-05-20] MEDS: POLYETHYLENE GLYCOL 3350 17 GM PACKET PO SCH (08:48)
[2017-05-20] MEDS: DONEPEZIL 5 MG TABLET PO SCH (08:49)
--- NOTE | 2017-05-20 08:54 | PROVIDER PROGRESS NOTE ---
Subjective - Prog Note Date Prog Note Date: 05/20/17 - Subjective Pt reports feeling: Improved Subjective: pt's mental status seem improved, no adverse events reported. Pt state she did not have pain, move with PT/OT. No chest pain, shortness of breath, cough, fever , reported. Current Medications - Current Medications Current Medications: Active Medications Acetaminophen (Tylenol) 650 - 975 mg PO Q4HR PRN PRN Reason: PAIN Aspirin (Hao) 325 mg PO BID [facility] Last Admin: 05/20/17 09:32 Dose: 325 mg Azithromycin (Zithromax) 500 mg PO DAILY [facility] Last Admin: 05/20/17 11:55 Dose: 500 mg Diltiazem HCl (Cardizem) 30 mg PO Q6HR [facility] Last Admin: 05/20/17 08:41 Dose: 30 mg Docusate Sodium (Colace 100mg Capsule) 100 mg PO BID PRN PRN Reason: Constipation Last Admin: 05/20/17 09:30 Dose: 100 mg Docusate Sodium (Colace 250mg Capsule) 250 - 500 mg PO DAILY [facility] Donepezil HCl (Aricept) 5 mg PO DAILY [facility] Last Admin: 05/20/17 08:49 Dose: 5 mg Famotidine (Pepcid) 20 mg PO DAILY [facility] Last Admin: 05/20/17 09:33 Dose: 20 mg Acetaminophen (Ofirmev) 100 mls @ 400 mls/hr IV Q6HR PRN PRN Reason: PAIN Last Admin: 05/19/17 10:07 Dose: 0 mls Levothyroxine Sodium (Synthroid) 75 mcg PO QDAC [facility] Last Admin: 05/20/17 06:48 Dose: 75 mcg Lorazepam (Ativan Inj (Vial)) 0.5 mg IVP Q2H PRN PRN Reason: Anxiety Last Admin: 05/19/17 23:59 Dose: 0.5 mg Morphine Sulfate (Morphine (Carpuject)) 2 mg IVP Q2HR PRN PRN Reason: Pain 8 to 10 Last Admin: 05/20/17 06:41 Dose: 2 mg Multivitamins (Theragran) 1 tab PO DAILYWM [facility] Last Admin: 05/20/17 09:32 Dose: 1 tab Ondansetron HCl (Zofran Inj) 4 mg IVP Q6HR PRN PRN Reason: Nausea / Vomiting Last Admin: 05/18/17 19:09 Dose: 4 mg Oxycodone/Acetaminophen (Percocet 5 Mg/325 Mg) 1 tab PO Q4HR PRN PRN Reason: PAIN Polyethylene Glycol (Miralax) 17 gm PO DAILY [facility] Last Admin: 05/20/17 08:48 Dose: 17 gm Prochlorperazine Edisylate (Compazine Inj) 10 mg IVP Q6HR PRN PRN Reason: Nausea / Vomiting Senna (Senokot) 17.2 mg PO Q12H PRN PRN Reason: Constipation Last Admin: 05/20/17 11:56 Dose: 17.2 mg Senna (Senokot) 8.6 - 17.2 mg PO DAILY [facility] Sodium Chloride (Normal Saline Flush 0.9%) 10 ml IVP Q8HR [facility] Last Admin: 05/20/17 06:22 Dose: 10 ml Sodium Chloride (Normal Saline Flush 0.9%) 10 ml IVP PRN PRN PRN Reason: NEEDED PER PROVIDER ORDERS Last Admin: 05/20/17 01:18 Dose: 10 ml Zolpidem Tartrate (Ambien) 5 mg PO QPM PRN PRN Reason: Insomnia Levothyroxine Sodium [Levoxyl] 75 mcg PO QDAC 08/14/13 Multivitamin [Multi-Vitamin Daily] 1 tab PO DAILY 04/07/14 ALPRAZolam [Alprazolam] 0.25 mg PO BID PRN 05/19/17 Donepezil [Aricept] 5 mg PO DAILY 05/19/17 Objective - Vital Signs/Intake & Output Reviewed Vital Signs: Yes Vital Signs: Vital Signs x48h Temp Pulse Resp BP BP Pulse Ox 05/20/17 08:41 142/76 H 05/20/17 07:55 37.5 C 63 20 142/76 H 92 05/20/17 06:34 36.4 C L 112 H 20 153/94 H 92 Intake & Output: Intake & Output 05/17/17 05/18/17 05/19/17 05/20/17 23:59 23:59 23:59 23:59 Intake Total 1000 2696.667 100 Balance 1000 2696.667 100 - Objective General Appearance: positive: No acute distress, Alert. negative: Lethargic Eyes Bilateral: positive: Normal inspection, PERRL, No lid inflammation, Conjunctivae nml ENT: positive: ENT inspection nml, Pharynx nml, No signs of dehydration. negative: Purulent nasal drainage, Pharyngeal erythema, Oral lesions Neck: positive: Nml inspection, Thyroid nml, No JVD, Trachea midline. negative : Thyromegaly, Lymphadenopathy (R), Lymphadenopathy (L), Stiff neck, Swelling/ bruising, Tracheal deviation Respiratory: positive: Chest non-tender, No respiratory distress, Breath sounds nml. negative: Wheezes, Rales, Rhonchi Cardiovascular: positive: Regular rate & rhythm, No murmur, No gallop. negative : Irregularly irregular, Extrasystoles, Tachycardia, Bradycardia, Systolic murmur, Diastolic murmur Peripheral Pulses: 2+ Radial (R), 2+ Radial (L), 2+ Dorsalis pedis (R), 2+ Dorsalis pedis (L) Abdomen: positive: Non-tender, No organomegaly, Nml bowel sounds, No distention. negative: Tenderness, Guarding, Rebound Back: positive: Nml inspection. negative: CVA tenderness (R), CVA tenderness (L ) Skin: positive: Color nml, No rash, Warm, Dry. negative: Cyanosis, Diaphoresis , Pallor Extremities: positive: Non-tender, Full ROM, Nml appearance. negative: Calf tenderness, Joint swelling, Lyric's sign/cords Neurologic/Psychiatric: positive: Sensation nml. negative: Sensory loss, Facial droop, Slurred/abnml speech, Depressed mood/affect - Lab Results Fish Bones: 05/20/17 06:48 05/20/17 06:48 Other Labs: Lab Results x24hrs 05/20/17 05/20/17 05/19/17 Range/Units 06:48 06:48 18:09 WBC 11.8 H (4.8-10.8) x10^3/uL RBC 4.24 (4.20-5.40) 10^6/uL Hgb 12.1 11.3 L (12.0-16.0) g/dL Hct 38.2 (37.0-47.0) % MCV 90.1 (81.0-99.0) fL MCH 28.4 (27.0-31.0) pg MCHC 31.5 L (32.0-36.0) g/dL RDW 14.2 (12.0-15.0) % Plt Count 163 (130-450) 10^3/uL MPV 8.5 (7.9-10.8) fL Neut # 9.4 H (1.5-6.6) 10^3/uL Lymph # 1.3 L (1.5-3.5) 10^3/uL [place] # 0.9 (0.0-1.0) 10^3/uL Eos # 0.1 (0.0-0.7) 10^3/uL Baso # 0.1 (0.0-0.1) 10^3/uL Absolute Nucleated RBC 0.00 x10^3/uL Nucleated RBC % 0.0 /100WBC Sodium 138 (135-145) mmol/L Potassium 3.5 (3.5-5.0) mmol/L Chloride 106 (101-111) mmol/L Carbon Dioxide 24 (21-32) mmol/L Anion Gap 8.0 (6-13) BUN 13 (6-20) mg/dL Creatinine 0.6 (0.4-1.0) mg/dL Estimated GFR (MDRD) 95 (>89) Glucose 115 H (70-100) mg/dL Calcium 8.9 (8.5-10.3) mg/dL Total Bilirubin 1.4 H (0.2-1.0) mg/dL AST 56 H (10-42) IU/L ALT 42 (10-60) IU/L Alkaline Phosphatase 66 (42-121) IU/L Total Protein 6.5 L (6.7-8.2) g/dL Albumin 3.5 (3.2-5.5) g/dL Globulin 3.0 (2.1-4.2) g/dL Albumin/Globulin Ratio 1.2 (1.0-2.2) Assessment/Plan - Problem List (1) Femoral neck fracture Impression: (1) Femoral neck fracture Conclusion/Plan: status post of hip repair day one pt's pain is well controlled, continue PT/OT evaluation and treatment continue pain control pt has surgery on this morning. pt state her pain is well controlled. It seems pt is some confused just post status of surgery follow up surgeon's recommendation continue PT/OT pain control resume diet add DVT prophylaxis from fall, orthopedics surgeon is consulted, pt is planning to have surgery on tomorrow morning pain control NPO after midnight IVF follow up the surgery (2) Dementia Conclusion/Plan: it seems pt's mental status is great improved, more oriented. continue monitor pt closely confused neuro check stable, resume of home Aricept vital and neuro check (3) Anxiety Conclusion/Plan: resume home Ativan PRN monitor pt, adjust meds as needed (4) Hypothyroidism Conclusion/Plan: TSH normal, continue home meds resume home and test TSH, and follow up (5) Osteoarthritis Conclusion/Plan: stable, pain control. (6) Afib with RVR pt develop new onset Afib with RVR, HR around 140. Pt is asymptomatic, no chest pain, no palpitation, no dizziness, no syncope. EKG add tele to monitor pt Cardizem 30 mg QID, continue monitor with tele, and adjust meds as needed pt is on Aspirin 325 mg Bid now after hip repair. Qualifiers: Encounter type: initial encounter Fracture type: closed Laterality: left Qualified Code(s): S72.002A - Fracture of unspecified part of neck of left femur, initial encounter for closed fracture
[2017-05-20] MEDS: DOCUSATE SODIUM 100 MG CAPSULE PO PRN (09:30)
[2017-05-20] MEDS: ASPIRIN 325 MG TABLET PO SCH ×2 (09:32→20:20)
[2017-05-20] MEDS: MULTIVITAMIN TABLET PO SCH (09:32)
[2017-05-20] MEDS: FAMOTIDINE 20 MG TABLET PO SCH (09:33)
[2017-05-20] MEDS: AZITHROMYCIN 250 MG TABLET PO SCH (11:55)
[2017-05-20] MEDS: SENNA 8.6 MG TABLET PO PRN (11:56)
--- NOTE | 2017-05-20 14:40 | PROVIDER PROGRESS NOTE ---
Subjective - Prog Note Date Prog Note Date: 05/20/17 Prog Note Time: 14:38 - Subjective Pt reports feeling: Improved (Minimal pain complaints) Objective - Vital Signs/Intake & Output Vital Signs: Vital Signs x48h Temp Pulse Pulse Resp Resp BP BP 05/20/17 11:48 36.7 C 91 16 141/75 H 05/20/17 11:36 99 14 05/20/17 08:41 142/76 H 05/20/17 07:55 37.5 C 63 20 BP BP Pulse Ox Pulse Ox 05/20/17 11:48 95 05/20/17 11:36 138/73 H 94 05/20/17 08:41 05/20/17 07:55 142/76 H 92 Intake & Output: Intake & Output 05/17/17 05/18/17 05/19/17 05/20/17 23:59 23:59 23:59 23:59 Intake Total 1000 2696.667 1150 Balance 1000 2696.667 1150 - Lab Results Fish Bones: 05/20/17 06:48 05/20/17 06:48 Other Labs: Lab Results x24hrs 05/20/17 05/20/17 05/19/17 Range/Units 06:48 06:48 18:09 WBC 11.8 H (4.8-10.8) x10^3/uL RBC 4.24 (4.20-5.40) 10^6/uL Hgb 12.1 11.3 L (12.0-16.0) g/dL Hct 38.2 (37.0-47.0) % MCV 90.1 (81.0-99.0) fL MCH 28.4 (27.0-31.0) pg MCHC 31.5 L (32.0-36.0) g/dL RDW 14.2 (12.0-15.0) % Plt Count 163 (130-450) 10^3/uL MPV 8.5 (7.9-10.8) fL Neut # 9.4 H (1.5-6.6) 10^3/uL Lymph # 1.3 L (1.5-3.5) 10^3/uL [place] # 0.9 (0.0-1.0) 10^3/uL Eos # 0.1 (0.0-0.7) 10^3/uL Baso # 0.1 (0.0-0.1) 10^3/uL Absolute Nucleated RBC 0.00 x10^3/uL Nucleated RBC % 0.0 /100WBC Sodium 138 (135-145) mmol/L Potassium 3.5 (3.5-5.0) mmol/L Chloride 106 (101-111) mmol/L Carbon Dioxide 24 (21-32) mmol/L Anion Gap 8.0 (6-13) BUN 13 (6-20) mg/dL Creatinine 0.6 (0.4-1.0) mg/dL Estimated GFR (MDRD) 95 (>89) Glucose 115 H (70-100) mg/dL Calcium 8.9 (8.5-10.3) mg/dL Total Bilirubin 1.4 H (0.2-1.0) mg/dL AST 56 H (10-42) IU/L ALT 42 (10-60) IU/L Alkaline Phosphatase 66 (42-121) IU/L Total Protein 6.5 L (6.7-8.2) g/dL Albumin 3.5 (3.2-5.5) g/dL Globulin 3.0 (2.1-4.2) g/dL Albumin/Globulin Ratio 1.2 (1.0-2.2) - Other Results/Comments Other Results/Comments: EXAM: Dressing intact. Minimally tender laterallyat the hip. N/V ok distally. Mild pain with hip motion. Is walking about the room. Assessment/Plan - Problem List (1) Femoral neck fracture Impression: satis post op PLAN: Continue rehab. To [facility] in 1-2 days Qualifiers: Encounter type: initial encounter Fracture type: closed Laterality: left Qualified Code(s): S72.002A - Fracture of unspecified part of neck of left femur, initial encounter for closed fracture
[2017-05-20] MEDS: DOCUSATE SODIUM 250 MG CAPSULE PO SCH (15:23)
[2017-05-20] MEDS: SENNA 8.6 MG TABLET PO SCH (15:23)
[2017-05-20] MEDS: LORazepam 2 MG/ML VIAL IVP PRN ×2 (17:31→20:20)
[2017-05-21] MEDS: diltiaZEM 30 MG TABLET PO SCH ×3 (03:13→13:42)
[2017-05-21 05:24] LABS: BASOPHILS # (AUTO) 0.1 10^3/uL (0.0-0.1); BASOPHILS % (AUTO) 0.6 %; EOSINOPHILS # (AUTO) 0.4 10^3/uL (0.0-0.7); EOSINOPHILS % (AUTO) 3.3 %; HGB - HEMOGLOBIN 12.3 g/dL (12.0-16.0); LYMPHOCYTES # (AUTO) 2.3 10^3/uL (1.5-3.5); LYMPHOCYTES % (AUTO) 19.9 %; MEAN CORPUSCULAR HEMOGLOBIN 28.7 pg (27.0-31.0); MEAN CORPUSCULAR HGB CONC 31.9 g/dL (32.0-36.0); MONOCYTES % (AUTO) 8.2 %; PLT - PLATELET COUNT 165 10^3/uL (130-450); RED BLOOD COUNT 4.28 10^6/uL (4.20-5.40); RED CELL DISTRIBUTION WIDTH 14.5 % (12.0-15.0); WHITE BLOOD COUNT 11.7 x10^3/uL (4.8-10.8)
[2017-05-21 05:30] LABS: ALBUMIN 3.5 g/dL (3.2-5.5); ALBUMIN/GLOBULIN RATIO 1.2 (1.0-2.2); BILIRUBIN,TOTAL 1.1 mg/dL (0.2-1.0); CALCIUM 9.2 mg/dL (8.5-10.3); CREATININE 0.7 mg/dL (0.4-1.0); TOTAL PROTEIN 6.4 g/dL (6.7-8.2)
[2017-05-21] MEDS: ACETAMINOPHEN 1,000 MG/100 ML 100 ML IV PRN (05:48)
[2017-05-21] MEDS: SODIUM CHLORIDE FLUSH 0.9% 10 ML SYRINGE IVP SCH ×3 (05:48→21:37)
[2017-05-21] MEDS: SODIUM CHLORIDE FLUSH 0.9% 10 ML SYRINGE IVP PRN (06:15)
[2017-05-21] MEDS: POLYETHYLENE GLYCOL 3350 17 GM PACKET PO SCH (07:59)
[2017-05-21] MEDS ORDERED: BISACODYL 10 MG SUPP PR ONE (09:00)
[2017-05-21] MEDS: LEVOTHYROXINE 75 MCG TABLET PO SCH (09:20)
[2017-05-21] MEDS: AZITHROMYCIN 250 MG TABLET PO SCH (09:20)
[2017-05-21] MEDS: ASPIRIN 325 MG TABLET PO SCH ×2 (09:22→21:37)
[2017-05-21] MEDS: DONEPEZIL 5 MG TABLET PO SCH (09:22)
[2017-05-21] MEDS: SENNA 8.6 MG TABLET PO PRN (09:24)
[2017-05-21] MEDS: FAMOTIDINE 20 MG TABLET PO SCH (09:27)
[2017-05-21] MEDS: DOCUSATE SODIUM 250 MG CAPSULE PO SCH (09:29)
[2017-05-21] MEDS: MULTIVITAMIN TABLET PO SCH (09:29)
[2017-05-21] MEDS: SENNA 8.6 MG TABLET PO SCH (09:29)
[2017-05-21] MEDS: DOCUSATE SODIUM 100 MG CAPSULE PO PRN (09:29)
--- NOTE | 2017-05-21 12:32 | PROVIDER PROGRESS NOTE ---
Subjective - Prog Note Date Prog Note Date: 05/21/17 - Subjective Pt reports feeling: Improved Subjective: pt is comfortable sleeping at bed. no adverse events reported. Pt's new onset Afib is in good control, and convert to normal SR at around 70. plan d/c tomorrow. Current Medications - Current Medications Current Medications: Active Medications Acetaminophen (Tylenol) 650 - 975 mg PO Q4HR PRN PRN Reason: PAIN Aspirin (Hao) 325 mg PO BID [facility] [place] Last Admin: 05/21/17 09:22 Dose: 325 mg Azithromycin (Zithromax) 500 mg PO DAILY [facility] [place] Last Admin: 05/21/17 09:20 Dose: 500 mg Diltiazem HCl (Cardizem) 30 mg PO Q6H [facility] [place] Last Admin: 05/21/17 08:00 Dose: 30 mg Docusate Sodium (Colace 100mg Capsule) 100 mg PO BID PRN PRN Reason: Constipation Last Admin: 05/21/17 09:29 Dose: 100 mg Docusate Sodium (Colace 250mg Capsule) 250 - 500 mg PO DAILY [facility] [place] Last Admin: 05/21/17 09:29 Dose: Not Given Donepezil HCl (Aricept) 5 mg PO DAILY [facility] [place] Last Admin: 05/21/17 09:22 Dose: 5 mg Famotidine (Pepcid) 20 mg PO DAILY [facility] [place] Last Admin: 05/21/17 09:27 Dose: 20 mg Acetaminophen (Ofirmev) 100 mls @ 400 mls/hr IV Q6HR PRN PRN Reason: PAIN Last Infusion: 05/21/17 06:00 Dose: Infused Levothyroxine Sodium (Synthroid) 75 mcg PO QDAC [facility] [place] Last Admin: 05/21/17 09:20 Dose: 75 mcg Lorazepam (Ativan Inj (Vial)) 0.5 mg IVP Q2H PRN PRN Reason: Anxiety Last Admin: 05/20/17 20:20 Dose: 0.5 mg Morphine Sulfate (Morphine (Carpuject)) 2 mg IVP Q2HR PRN PRN Reason: Pain 8 to 10 Last Admin: 05/20/17 22:05 Dose: 2 mg Multivitamins (Theragran) 1 tab PO DAILYWM [facility] [place] Last Admin: 05/21/17 09:29 Dose: 1 tab Ondansetron HCl (Zofran Inj) 4 mg IVP Q6HR PRN PRN Reason: Nausea / Vomiting Last Admin: 05/18/17 19:09 Dose: 4 mg Oxycodone/Acetaminophen (Percocet 5 Mg/325 Mg) 1 tab PO Q4HR PRN PRN Reason: PAIN Polyethylene Glycol (Miralax) 17 gm PO DAILY [facility] [place] Last Admin: 05/21/17 07:59 Dose: 17 gm Prochlorperazine Edisylate (Compazine Inj) 10 mg IVP Q6HR PRN PRN Reason: Nausea / Vomiting Senna (Senokot) 17.2 mg PO Q12H PRN PRN Reason: Constipation Last Admin: 05/21/17 09:24 Dose: 17.2 mg Senna (Senokot) 8.6 - 17.2 mg PO DAILY [facility] [place] Last Admin: 05/21/17 09:29 Dose: Not Given Sodium Chloride (Normal Saline Flush 0.9%) 10 ml IVP Q8HR [facility] [place] Last Admin: 05/21/17 05:48 Dose: 10 ml Sodium Chloride (Normal Saline Flush 0.9%) 10 ml IVP PRN PRN PRN Reason: NEEDED PER PROVIDER ORDERS Last Admin: 05/21/17 06:15 Dose: 10 ml Zolpidem Tartrate (Ambien) 5 mg PO QPM PRN PRN Reason: Insomnia Levothyroxine Sodium [Levoxyl] 75 mcg PO QDAC 08/14/13 Multivitamin [Multi-Vitamin Daily] 1 tab PO DAILY 04/07/14 ALPRAZolam [Alprazolam] 0.25 mg PO BID PRN 05/19/17 Donepezil [Aricept] 5 mg PO DAILY 05/19/17 Objective - Vital Signs/Intake & Output Reviewed Vital Signs: Yes Vital Signs: Vital Signs x48h Temp Pulse Resp BP BP Pulse Ox 05/21/17 08:20 36.6 C 104 H 18 149/88 H 94 05/21/17 08:00 149/88 H 05/21/17 05:00 36.3 C L 87 18 142/85 H 93 Intake & Output: Intake & Output 05/18/17 05/19/17 05/20/17 05/21/17 23:59 23:59 23:59 23:59 Intake Total 1000 2696.667 1150 460 Balance 1000 2696.667 1150 460 - Objective General Appearance: positive: No acute distress, Alert. negative: Lethargic Eyes Bilateral: positive: Normal inspection, PERRL, No lid inflammation, Conjunctivae nml ENT: positive: ENT inspection nml, Pharynx nml, No signs of dehydration. negative: Purulent nasal drainage, Pharyngeal erythema, Oral lesions Neck: positive: Nml inspection, Thyroid nml, No JVD, Trachea midline. negative : Thyromegaly, Lymphadenopathy (R), Lymphadenopathy (L), Stiff neck, Carotid bruit, Swelling/bruising, Tracheal deviation Cardiovascular: positive: Regular rate & rhythm, No murmur, No gallop. negative : Irregularly irregular, Extrasystoles, Tachycardia, Bradycardia, Systolic murmur, Diastolic murmur Peripheral Pulses: 2+ Radial (R), 2+ Radial (L), 2+ Dorsalis pedis (R), 2+ Dorsalis pedis (L) Abdomen: positive: Non-tender, No organomegaly, Nml bowel sounds, No distention. negative: Tenderness, Guarding, Rebound Back: positive: Nml inspection. negative: CVA tenderness (R), CVA tenderness (L ) Skin: positive: Color nml, No rash, Warm, Dry. negative: Cyanosis, Diaphoresis , Pallor Extremities: positive: Non-tender, Full ROM, Nml appearance. negative: Calf tenderness, Joint swelling, Lyric's sign/cords Neurologic/Psychiatric: positive: Motor nml, Sensation nml. negative: Sensory loss, Facial droop, Slurred/abnml speech, Depressed mood/affect - Lab Results Fish Bones: 05/21/17 05:07 05/21/17 05:07 Other Labs: Lab Results x24hrs 05/21/17 05/21/17 Range/Units 05:07 05:07 WBC 11.7 H (4.8-10.8) x10^3/uL RBC 4.28 (4.20-5.40) 10^6/uL Hgb 12.3 (12.0-16.0) g/dL Hct 38.5 (37.0-47.0) % MCV 90.0 (81.0-99.0) fL MCH 28.7 (27.0-31.0) pg MCHC 31.9 L (32.0-36.0) g/dL RDW 14.5 (12.0-15.0) % Plt Count 165 (130-450) 10^3/uL MPV 9.0 (7.9-10.8) fL Neut # 8.0 H (1.5-6.6) 10^3/uL Lymph # 2.3 (1.5-3.5) 10^3/uL [place] # 1.0 (0.0-1.0) 10^3/uL Eos # 0.4 (0.0-0.7) 10^3/uL Baso # 0.1 (0.0-0.1) 10^3/uL Absolute Nucleated RBC 0.01 x10^3/uL Nucleated RBC % 0.0 /100WBC Sodium 139 (135-145) mmol/L Potassium 3.6 (3.5-5.0) mmol/L Chloride 101 (101-111) mmol/L Carbon Dioxide 25 (21-32) mmol/L Anion Gap 13.0 (6-13) BUN 11 (6-20) mg/dL Creatinine 0.7 (0.4-1.0) mg/dL Estimated GFR (MDRD) 80 L (>89) Glucose 100 (70-100) mg/dL Calcium 9.2 (8.5-10.3) mg/dL Total Bilirubin 1.1 H (0.2-1.0) mg/dL AST 48 H (10-42) IU/L ALT 32 (10-60) IU/L Alkaline Phosphatase 68 (42-121) IU/L Total Protein 6.4 L (6.7-8.2) g/dL Albumin 3.5 (3.2-5.5) g/dL Globulin 2.9 (2.1-4.2) g/dL Albumin/Globulin Ratio 1.2 (1.0-2.2) Assessment/Plan - Problem List (1) Femoral neck fracture Impression: (1) Femoral neck fracture Conclusion/Plan: pt continue to do well with PT/OT pt is good control plan to d/c tomorrow. status post of hip repair day one pt's pain is well controlled, continue PT/OT evaluation and treatment continue pain control pt has surgery on this morning. pt state her pain is well controlled. It seems pt is some confused just post status of surgery follow up surgeon's recommendation continue PT/OT pain control resume diet add DVT prophylaxis from fall, orthopedics surgeon is consulted, pt is planning to have surgery on tomorrow morning pain control NPO after midnight IVF follow up the surgery (2) Dementia Conclusion/Plan: doing good, as her baseline now continue home medication it seems pt's mental status is great improved, more oriented. continue monitor pt closely confused neuro check stable, resume of home Aricept vital and neuro check (3) Anxiety Conclusion/Plan: try to avoid Ativan PRN resume home Ativan PRN monitor pt, adjust meds as needed (4) Hypothyroidism Conclusion/Plan: TSH normal, continue home meds resume home and test TSH, and follow up (5) Osteoarthritis Conclusion/Plan: stable, pain control. (6) Afib with RVR It seems pt's new onset of Afib is converted to normal SR continue Cardizem PO, pt need rn manager consult as the out-pt pt develop new onset Afib with RVR, HR around 140. Pt is asymptomatic, no chest pain, no palpitation, no dizziness, no syncope. EKG add tele to monitor pt Cardizem 30 mg QID, continue monitor with tele, and adjust meds as needed pt is on Aspirin 325 mg Bid now after hip repair. Qualifiers: Encounter type: initial encounter Fracture type: closed Laterality: left Qualified Code(s): S72.002A - Fracture of unspecified part of neck of left femur, initial encounter for closed fracture
--- NOTE | 2017-05-21 12:32 | PROVIDER PROGRESS NOTE ---
Subjective - Prog Note Date Prog Note Date: 05/21/17 Prog Note Time: 12:28 - Subjective Pt reports feeling: Improved (Less pain. No distal weakness/numbness) Objective - Vital Signs/Intake & Output Vital Signs: Vital Signs x48h Temp Pulse Resp BP BP Pulse Ox 05/21/17 08:20 36.6 C 104 H 18 149/88 H 94 05/21/17 08:00 149/88 H 05/21/17 05:00 36.3 C L 87 18 142/85 H 93 Intake & Output: Intake & Output 05/18/17 05/19/17 05/20/17 05/21/17 23:59 23:59 23:59 23:59 Intake Total 1000 2696.667 1150 460 Balance 1000 2696.667 1150 460 - Lab Results Fish Bones: 05/21/17 05:07 05/21/17 05:07 Other Labs: Lab Results x24hrs 05/21/17 05/21/17 Range/Units 05:07 05:07 WBC 11.7 H (4.8-10.8) x10^3/uL RBC 4.28 (4.20-5.40) 10^6/uL Hgb 12.3 (12.0-16.0) g/dL Hct 38.5 (37.0-47.0) % MCV 90.0 (81.0-99.0) fL MCH 28.7 (27.0-31.0) pg MCHC 31.9 L (32.0-36.0) g/dL RDW 14.5 (12.0-15.0) % Plt Count 165 (130-450) 10^3/uL MPV 9.0 (7.9-10.8) fL Neut # 8.0 H (1.5-6.6) 10^3/uL Lymph # 2.3 (1.5-3.5) 10^3/uL [place] # 1.0 (0.0-1.0) 10^3/uL Eos # 0.4 (0.0-0.7) 10^3/uL Baso # 0.1 (0.0-0.1) 10^3/uL Absolute Nucleated RBC 0.01 x10^3/uL Nucleated RBC % 0.0 /100WBC Sodium 139 (135-145) mmol/L Potassium 3.6 (3.5-5.0) mmol/L Chloride 101 (101-111) mmol/L Carbon Dioxide 25 (21-32) mmol/L Anion Gap 13.0 (6-13) BUN 11 (6-20) mg/dL Creatinine 0.7 (0.4-1.0) mg/dL Estimated GFR (MDRD) 80 L (>89) Glucose 100 (70-100) mg/dL Calcium 9.2 (8.5-10.3) mg/dL Total Bilirubin 1.1 H (0.2-1.0) mg/dL AST 48 H (10-42) IU/L ALT 32 (10-60) IU/L Alkaline Phosphatase 68 (42-121) IU/L Total Protein 6.4 L (6.7-8.2) g/dL Albumin 3.5 (3.2-5.5) g/dL Globulin 2.9 (2.1-4.2) g/dL Albumin/Globulin Ratio 1.2 (1.0-2.2) - Other Results/Comments Other Results/Comments: EXAM: Dressing intact. Moving toes well. Sensation intact. Good cap filling. Up in PT Assessment/Plan - Problem List (1) Femoral neck fracture Impression: satis post op PLAN: Mobilize as tolerated. To SNF soon. Follow up in two weeks with orthopedic clinic for SR and XR. Aspirin x 2 weeks. Continue walker ambulation - WBAT on left. Qualifiers: Encounter type: initial encounter Fracture type: closed Laterality: left Qualified Code(s): S72.002A - Fracture of unspecified part of neck of left femur, initial encounter for closed fracture
[2017-05-21] MEDS: diltiaZEM CD 120 MG CAPSULE PO SCH (15:38)
[2017-05-21] MEDS: MORPHINE 2 MG/ML CARPUJECT IVP PRN (19:26)
[2017-05-21] MEDS: LORazepam 2 MG/ML VIAL IVP PRN (19:26)
[2017-05-22] MEDS: MORPHINE 2 MG/ML CARPUJECT IVP PRN ×3 (05:22→22:30)
[2017-05-22] MEDS: SODIUM CHLORIDE FLUSH 0.9% 10 ML SYRINGE IVP SCH ×4 (05:23→23:43)
[2017-05-22] MEDS: LEVOTHYROXINE 75 MCG TABLET PO SCH (05:59)
[2017-05-22 06:34] LABS: BASOPHILS # (AUTO) 0.1 10^3/uL (0.0-0.1); BASOPHILS % (AUTO) 0.8 %; EOSINOPHILS # (AUTO) 0.2 10^3/uL (0.0-0.7); EOSINOPHILS % (AUTO) 2.1 %; HGB - HEMOGLOBIN 11.9 g/dL (12.0-16.0); LYMPHOCYTES # (AUTO) 0.9 10^3/uL (1.5-3.5); LYMPHOCYTES % (AUTO) 9.9 %; MEAN CORPUSCULAR HEMOGLOBIN 29.4 pg (27.0-31.0); MEAN CORPUSCULAR HGB CONC 32.9 g/dL (32.0-36.0); MEAN CORPUSCULAR VOLUME 89.3 fL (81.0-99.0); MONOCYTES # (AUTO) 0.8 10^3/uL (0.0-1.0); MONOCYTES % (AUTO) 8.3 %; NEUTROPHILS # (AUTO) 7.5 10^3/uL (1.5-6.6); NEUTROPHILS % (AUTO) 78.9 %; PLT - PLATELET COUNT 174 10^3/uL (130-450); RED BLOOD COUNT 4.05 10^6/uL (4.20-5.40); RED CELL DISTRIBUTION WIDTH 14.2 % (12.0-15.0); WHITE BLOOD COUNT 9.5 x10^3/uL (4.8-10.8)
[2017-05-22 06:52] LABS: ALBUMIN 3.1 g/dL (3.2-5.5); ALBUMIN/GLOBULIN RATIO 1.1 (1.0-2.2); BILIRUBIN,TOTAL 0.9 mg/dL (0.2-1.0); CALCIUM 8.7 mg/dL (8.5-10.3); CREATININE 0.6 mg/dL (0.4-1.0); TOTAL PROTEIN 5.9 g/dL (6.7-8.2)
[2017-05-22] MEDS ORDERED: POTASSIUM CHLORIDE 20 MEQ TABLET PO ONE (07:33)
[2017-05-22] MEDS: FAMOTIDINE 20 MG TABLET PO SCH (08:57)
[2017-05-22] MEDS: oxyCOD/ACETAMIN 5 MG/325 MG TABLET PO PRN (08:58)
[2017-05-22] MEDS: POLYETHYLENE GLYCOL 3350 17 GM PACKET PO SCH (08:58)
[2017-05-22] MEDS: MULTIVITAMIN TABLET PO SCH (08:58)
[2017-05-22] MEDS: AZITHROMYCIN 250 MG TABLET PO SCH (08:59)
[2017-05-22] MEDS: ASPIRIN 325 MG TABLET PO SCH ×2 (08:59→20:31)
[2017-05-22] MEDS: diltiaZEM CD 120 MG CAPSULE PO SCH (08:59)
[2017-05-22] MEDS: DONEPEZIL 5 MG TABLET PO SCH (09:00)
[2017-05-22] MEDS: SENNA 8.6 MG TABLET PO PRN (09:00)
[2017-05-22] MEDS: DOCUSATE SODIUM 250 MG CAPSULE PO SCH (09:06)
[2017-05-22] MEDS: SENNA 8.6 MG TABLET PO SCH (09:06)
--- NOTE | 2017-05-22 09:47 | PROVIDER PROGRESS NOTE ---
Subjective - Prog Note Date Prog Note Date: 05/22/17 Prog Note Time: 09:46 - Subjective Pt reports feeling: Improved Objective - Vital Signs/Intake & Output Vital Signs: Vital Signs x48h Temp Pulse Resp BP BP Pulse Ox 05/22/17 08:18 37.3 C 76 16 145/70 H 96 05/22/17 06:09 140/67 H 05/22/17 05:00 37.0 C 84 18 171/90 H 98 Intake & Output: Intake & Output 05/19/17 05/20/17 05/21/17 05/22/17 23:59 23:59 23:59 23:59 Intake Total 2696.667 1150 950 640 Balance 2696.667 1150 950 640 - Lab Results Fish Bones: 05/22/17 05:58 05/22/17 05:58 Other Labs: Lab Results x24hrs 05/22/17 05/22/17 Range/Units 05:58 05:58 WBC 9.5 (4.8-10.8) x10^3/uL RBC 4.05 L (4.20-5.40) 10^6/uL Hgb 11.9 L (12.0-16.0) g/dL Hct 36.2 L (37.0-47.0) % MCV 89.3 (81.0-99.0) fL MCH 29.4 (27.0-31.0) pg MCHC 32.9 (32.0-36.0) g/dL RDW 14.2 (12.0-15.0) % Plt Count 174 (130-450) 10^3/uL MPV 9.0 (7.9-10.8) fL Neut # 7.5 H (1.5-6.6) 10^3/uL Lymph # 0.9 L (1.5-3.5) 10^3/uL [place] # 0.8 (0.0-1.0) 10^3/uL Eos # 0.2 (0.0-0.7) 10^3/uL Baso # 0.1 (0.0-0.1) 10^3/uL Absolute Nucleated RBC 0.01 x10^3/uL Nucleated RBC % 0.1 /100WBC Sodium 138 (135-145) mmol/L Potassium 3.4 L (3.5-5.0) mmol/L Chloride 105 (101-111) mmol/L Carbon Dioxide 26 (21-32) mmol/L Anion Gap 7.0 (6-13) BUN 11 (6-20) mg/dL Creatinine 0.6 (0.4-1.0) mg/dL Estimated GFR (MDRD) 95 (>89) Glucose 109 H (70-100) mg/dL Calcium 8.7 (8.5-10.3) mg/dL Total Bilirubin 0.9 (0.2-1.0) mg/dL AST 29 (10-42) IU/L ALT 25 (10-60) IU/L Alkaline Phosphatase 65 (42-121) IU/L Total Protein 5.9 L (6.7-8.2) g/dL Albumin 3.1 L (3.2-5.5) g/dL Globulin 2.8 (2.1-4.2) g/dL Albumin/Globulin Ratio 1.1 (1.0-2.2) - Other Results/Comments Other Results/Comments: EXAM: Dressing intact. Mild pain with hip motion. Up on floor in PT Assessment/Plan - Problem List (1) Femoral neck fracture Impression: satis post op PLAN: To snf today. Follow up in 2 weeks in ortho clinic Qualifiers: Encounter type: initial encounter Fracture type: closed Laterality: left Qualified Code(s): S72.002A - Fracture of unspecified part of neck of left femur, initial encounter for closed fracture
--- NOTE | 2017-05-22 11:10 | XRAY Report ---
[facility]: Fluoroscopy time only, no images submitted for interpretation. Fluoroscopy time 0 minutes, 10 seconds. ADILSON
[2017-05-22] MEDS: NITROGLYCERIN SL 0.4 MG TABLET SL PRN ×2 (15:08→15:15)
[2017-05-22] MEDS ORDERED: NITROGLYCERIN SL 0.4 MG TABLET SL ONE (15:09)
--- NOTE | 2017-05-22 17:27 | CT Report ---
DATE OF SERVICE: CT OF BRAIN WITHOUT CONTRAST: 05/22/2017 CLINICAL INDICATION: Fall, headache, lethargy. TECHNIQUE: Axial CT images of the brain were obtained without intravenous contrast. No previous CT is available for comparison. FINDINGS: The ventricles and sulci demonstrate mild symmetric enlargement, compatible with atrophy. The basilar cisterns are patent. There is no evidence of hemorrhage, mass effect, or midline shift. The visualized orbital contents and paranasal sinuses are unremarkable. IMPRESSION: MILD ATROPHY. NO EVIDENCE OF ACUTE HEMORRHAGE OR MASS EFFECT. In accordance with CT protocol optimization, one or more of the following dose reduction techniques were utilized for this exam: automated exposure control, adjustment of mA and/or KV based on patient size, or use of iterative reconstructive technique. TD: 05/22/2017 18:26 [email or web address]
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
[2017-05-22] MEDS: LORazepam 2 MG/ML VIAL IVP PRN ×2 (18:53→22:30)
[2017-05-22] MEDS ORDERED: OLANZapine 10 MG VIAL IM ONE (22:27)
[2017-05-22] MEDS: diphenhydrAMINE INJ 50 MG/ML VIAL IVP PRN (23:42)
[2017-05-23 05:22] LABS: BASOPHILS # (AUTO) 0.2 10^3/uL (0.0-0.1); EOSINOPHILS # (AUTO) 0.2 10^3/uL (0.0-0.7); EOSINOPHILS % (AUTO) 2.1 %; HGB - HEMOGLOBIN 12.2 g/dL (12.0-16.0); LYMPHOCYTES # (AUTO) 1.4 10^3/uL (1.5-3.5); MEAN CORPUSCULAR HEMOGLOBIN 28.3 pg (27.0-31.0); MEAN CORPUSCULAR HGB CONC 30.5 g/dL (32.0-36.0); MEAN CORPUSCULAR VOLUME 92.8 fL (81.0-99.0); MEAN PLATELET VOLUME 9.2 fL (7.9-10.8); MONOCYTES % (AUTO) 9.9 %; NEUTROPHILS # (AUTO) 7.1 10^3/uL (1.5-6.6); PLT - PLATELET COUNT 224 10^3/uL (130-450); RED CELL DISTRIBUTION WIDTH 14.7 % (12.0-15.0); WHITE BLOOD COUNT 9.8 x10^3/uL (4.8-10.8)
[2017-05-23 05:33] LABS: ALBUMIN 3.5 g/dL (3.2-5.5); ALBUMIN/GLOBULIN RATIO 1.1 (1.0-2.2); BILIRUBIN,TOTAL 1.1 mg/dL (0.2-1.0); CALCIUM 9.2 mg/dL (8.5-10.3); CREATININE 0.7 mg/dL (0.4-1.0); TOTAL PROTEIN 6.8 g/dL (6.7-8.2)
[2017-05-23] MEDS: POLYETHYLENE GLYCOL 3350 17 GM PACKET PO SCH (08:34)
[2017-05-23] MEDS: MULTIVITAMIN TABLET PO SCH (08:35)
[2017-05-23] MEDS: ACETAMINOPHEN 325 MG TABLET PO PRN ×2 (08:35→14:15)
[2017-05-23] MEDS: FAMOTIDINE 20 MG TABLET PO SCH (08:35)
[2017-05-23] MEDS: diltiaZEM CD 120 MG CAPSULE PO SCH (08:36)
[2017-05-23] MEDS: SENNA 8.6 MG TABLET PO SCH (08:36)
[2017-05-23] MEDS: AZITHROMYCIN 250 MG TABLET PO SCH (08:37)
[2017-05-23] MEDS: DONEPEZIL 5 MG TABLET PO SCH (08:37)
[2017-05-23] MEDS: ASPIRIN 325 MG TABLET PO SCH ×2 (08:37→23:31)
[2017-05-23] MEDS: LEVOTHYROXINE 75 MCG TABLET PO SCH (08:37)
[2017-05-23] MEDS: DOCUSATE SODIUM 250 MG CAPSULE PO SCH (09:20)
--- NOTE | 2017-05-23 11:36 | PROVIDER PROGRESS NOTE ---
Subjective - Prog Note Date Prog Note Date: 05/23/17 - Subjective Pt reports feeling: Improved Subjective: Pt's behaviour is better. No chest pain, shortness of breath, fever, chill, cough reported. I reported the accident and CT test result without acute injury to her . Current Medications - Current Medications Current Medications: Active Medications Acetaminophen (Tylenol) 650 - 975 mg PO Q4HR PRN PRN Reason: PAIN Last Admin: 05/23/17 08:35 Dose: 975 mg Aspirin (Hao) 325 mg PO BID [facility] Last Admin: 05/23/17 08:37 Dose: 325 mg Azithromycin (Zithromax) 250 mg PO DAILY [facility] Last Admin: 05/23/17 08:37 Dose: 250 mg Diltiazem HCl (Cardizem Cd) 120 mg PO DAILY [facility] Last Admin: 05/23/17 08:36 Dose: 120 mg Diphenhydramine HCl (Benadryl Inj) 25 mg IVP Q6H PRN PRN Reason: Allergy Symptoms Last Admin: 05/22/17 23:42 Dose: 25 mg Docusate Sodium (Colace 100mg Capsule) 100 mg PO BID PRN PRN Reason: Constipation Last Admin: 05/21/17 09:29 Dose: 100 mg Docusate Sodium (Colace 250mg Capsule) 250 - 500 mg PO DAILY [facility] Last Admin: 05/22/17 09:06 Dose: 250 mg Donepezil HCl (Aricept) 5 mg PO DAILY [facility] Last Admin: 05/23/17 08:37 Dose: 5 mg Famotidine (Pepcid) 20 mg PO DAILY [facility] Last Admin: 05/23/17 08:35 Dose: 20 mg Acetaminophen (Ofirmev) 100 mls @ 400 mls/hr IV Q6HR PRN PRN Reason: PAIN Last Infusion: 05/21/17 06:00 Dose: Infused Levothyroxine Sodium (Synthroid) 75 mcg PO QDAC [facility] Last Admin: 05/23/17 08:37 Dose: 75 mcg Lorazepam (Ativan Inj (Vial)) 0.5 mg IVP Q2H PRN PRN Reason: Anxiety Last Admin: 05/22/17 22:30 Dose: 0.5 mg Morphine Sulfate (Morphine (Carpuject)) 2 mg IVP Q2HR PRN PRN Reason: Pain 8 to 10 Last Admin: 05/22/17 22:30 Dose: 2 mg Multivitamins (Theragran) 1 tab PO DAILYWM [facility] Last Admin: 05/23/17 08:35 Dose: 1 tab Nitroglycerin (Nitrostat) 0.4 mg SL Q5MIN PRN PRN Reason: Chest Pain Last Admin: 05/22/17 15:15 Dose: 0.4 mg Ondansetron HCl (Zofran Inj) 4 mg IVP Q6HR PRN PRN Reason: Nausea / Vomiting Last Admin: 05/18/17 19:09 Dose: 4 mg Oxycodone/Acetaminophen (Percocet 5 Mg/325 Mg) 1 tab PO Q4HR PRN PRN Reason: PAIN Last Admin: 05/22/17 08:58 Dose: 1 tab Polyethylene Glycol (Miralax) 17 gm PO DAILY [facility] Last Admin: 05/23/17 08:34 Dose: 17 gm Prochlorperazine Edisylate (Compazine Inj) 10 mg IVP Q6HR PRN PRN Reason: Nausea / Vomiting Senna (Senokot) 17.2 mg PO Q12H PRN PRN Reason: Constipation Last Admin: 05/22/17 09:00 Dose: 17.2 mg Senna (Senokot) 8.6 - 17.2 mg PO DAILY [facility] Last Admin: 05/23/17 08:36 Dose: 17.2 mg Sodium Chloride (Normal Saline Flush 0.9%) 10 ml IVP Q8HR [facility] Last Admin: 05/22/17 23:43 Dose: 10 ml Sodium Chloride (Normal Saline Flush 0.9%) 10 ml IVP PRN PRN PRN Reason: NEEDED PER PROVIDER ORDERS Last Admin: 05/21/17 06:15 Dose: 10 ml Zolpidem Tartrate (Ambien) 5 mg PO QPM PRN PRN Reason: Insomnia Levothyroxine Sodium [Levoxyl] 75 mcg PO QDAC 08/14/13 Multivitamin [Multi-Vitamin Daily] 1 tab PO DAILY 04/07/14 ALPRAZolam [Alprazolam] 0.25 mg PO BID PRN 05/19/17 Donepezil [Aricept] 5 mg PO DAILY 05/19/17 Objective - Vital Signs/Intake & Output Reviewed Vital Signs: Yes Vital Signs: Vital Signs x48h Temp Pulse Resp BP Pulse Ox 05/23/17 06:18 36.4 C L 87 16 132/60 H 97 Intake & Output: Intake & Output 05/20/17 05/21/17 05/22/17 05/23/17 23:59 23:59 23:59 23:59 Intake Total 9310 090 8747 290 Balance 5169 513 6150 290 - Objective General Appearance: positive: No acute distress, Alert. negative: Lethargic Eyes Bilateral: positive: Normal inspection, PERRL, No lid inflammation, Conjunctivae nml ENT: positive: ENT inspection nml, Pharynx nml, No signs of dehydration. negative: Purulent nasal drainage, Pharyngeal erythema, Oral lesions Neck: positive: Nml inspection, Thyroid nml, No JVD, Trachea midline. negative : Thyromegaly, Lymphadenopathy (R), Lymphadenopathy (L), Stiff neck, Carotid bruit, Swelling/bruising, Tracheal deviation Respiratory: positive: Chest non-tender, No respiratory distress, Breath sounds nml. negative: Wheezes, Rales, Rhonchi Cardiovascular: positive: Regular rate & rhythm, No murmur, No gallop. negative : Irregularly irregular, Extrasystoles, Tachycardia, Bradycardia, Systolic murmur, Diastolic murmur Peripheral Pulses: 2+ Radial (R), 2+ Radial (L), 2+ Dorsalis pedis (R), 2+ Dorsalis pedis (L) Abdomen: positive: Non-tender, No organomegaly, Nml bowel sounds, No distention. negative: Tenderness, Guarding, Rebound Back: positive: Nml inspection. negative: CVA tenderness (R), CVA tenderness (L ) Skin: positive: Color nml, No rash, Warm, Dry. negative: Cyanosis, Diaphoresis , Pallor Extremities: positive: Non-tender, Full ROM, Nml appearance. negative: Calf tenderness, Joint swelling, Lyric's sign/cords Neurologic/Psychiatric: positive: Sensation nml. negative: Sensory loss, Facial droop, Slurred/abnml speech - Lab Results Fish Bones: 05/23/17 05:14 05/23/17 05:14 Other Labs: Lab Results x24hrs 05/23/17 05/23/17 05/23/17 Range/Units 05:14 05:14 05:14 WBC 9.8 (4.8-10.8) x10^3/uL RBC 4.30 (4.20-5.40) 10^6/uL Hgb 12.2 (12.0-16.0) g/dL Hct 39.9 (37.0-47.0) % MCV 92.8 (81.0-99.0) fL MCH 28.3 (27.0-31.0) pg MCHC 30.5 L (32.0-36.0) g/dL RDW 14.7 (12.0-15.0) % Plt Count 224 (130-450) 10^3/uL MPV 9.2 (7.9-10.8) fL Neut # 7.1 H (1.5-6.6) 10^3/uL Lymph # 1.4 L (1.5-3.5) 10^3/uL Kendall # 1.0 (0.0-1.0) 10^3/uL Eos # 0.2 (0.0-0.7) 10^3/uL Baso # 0.2 H (0.0-0.1) 10^3/uL Absolute Nucleated RBC 0.01 x10^3/uL Nucleated RBC % 0.1 /100WBC Sodium 139 (135-145) mmol/L Potassium 3.5 (3.5-5.0) mmol/L Chloride 106 (101-111) mmol/L Carbon Dioxide 24 (21-32) mmol/L Anion Gap 9.0 (6-13) BUN 11 (6-20) mg/dL Creatinine 0.7 (0.4-1.0) mg/dL Estimated GFR (MDRD) 80 L (>89) Glucose 103 H (70-100) mg/dL Calcium 9.2 (8.5-10.3) mg/dL Total Bilirubin 1.1 H (0.2-1.0) mg/dL AST 32 (10-42) IU/L ALT 27 (10-60) IU/L Alkaline Phosphatase 75 (42-121) IU/L Troponin I < 0.04 (<0.49) ng/mL Total Protein 6.8 (6.7-8.2) g/dL Albumin 3.5 (3.2-5.5) g/dL Globulin 3.3 (2.1-4.2) g/dL Albumin/Globulin Ratio 1.1 (1.0-2.2) 05/22/17 05/22/17 Range/Units 21:28 15:09 WBC (4.8-10.8) x10^3/uL RBC (4.20-5.40) 10^6/uL Hgb (12.0-16.0) g/dL Hct (37.0-47.0) % MCV (81.0-99.0) fL MCH (27.0-31.0) pg MCHC (32.0-36.0) g/dL RDW (12.0-15.0) % Plt Count (130-450) 10^3/uL MPV (7.9-10.8) fL Neut # (1.5-6.6) 10^3/uL Lymph # (1.5-3.5) 10^3/uL Kendall # (0.0-1.0) 10^3/uL Eos # (0.0-0.7) 10^3/uL Baso # (0.0-0.1) 10^3/uL Absolute Nucleated RBC x10^3/uL Nucleated RBC % /100WBC Sodium (135-145) mmol/L Potassium (3.5-5.0) mmol/L Chloride (101-111) mmol/L Carbon Dioxide (21-32) mmol/L Anion Gap (6-13) BUN (6-20) mg/dL Creatinine (0.4-1.0) mg/dL Estimated GFR (MDRD) (>89) Glucose (70-100) mg/dL Calcium (8.5-10.3) mg/dL Total Bilirubin (0.2-1.0) mg/dL AST (10-42) IU/L ALT (10-60) IU/L Alkaline Phosphatase (42-121) IU/L Troponin I < 0.04 < 0.04 (<0.49) ng/mL Total Protein (6.7-8.2) g/dL Albumin (3.2-5.5) g/dL Globulin (2.1-4.2) g/dL Albumin/Globulin Ratio (1.0-2.2) Assessment/Plan - Problem List (1) Femoral neck fracture Impression: (1) Femoral neck fracture Conclusion/Plan: pt continue to do well with PT/OT pain is good control continue PT/OT status post of hip repair day one pt's pain is well controlled, continue PT/OT evaluation and treatment continue pain control pt has surgery on this morning. pt state her pain is well controlled. It seems pt is some confused just post status of surgery follow up surgeon's recommendation continue PT/OT pain control resume diet add DVT prophylaxis from fall, orthopedics surgeon is consulted, pt is planning to have surgery on tomorrow morning pain control NPO after midnight IVF follow up the surgery (2) Dementia Conclusion/Plan: doing better at today morning neuro-check doing good, as her baseline now continue home medication it seems pt's mental status is great improved, more oriented. continue monitor pt closely confused neuro check stable, resume of home Aricept vital and neuro check (3) Anxiety Conclusion/Plan: continue monitor and treat pt try to avoid Ativan PRN resume home Ativan PRN monitor pt, adjust meds as needed (4) Hypothyroidism Conclusion/Plan: TSH normal, continue home meds resume home and test TSH, and follow up (5) Osteoarthritis Conclusion/Plan: stable, pain control. (6) Afib with RVR resolved. NSR It seems pt's new onset of Afib is converted to normal SR continue Cardizem PO, pt need pelts skinner consult as the out-pt pt develop new onset Afib with RVR, HR around 140. Pt is asymptomatic, no chest pain, no palpitation, no dizziness, no syncope. EKG add tele to monitor pt Cardizem 30 mg QID, continue monitor with tele, and adjust meds as needed pt is on Aspirin 325 mg Bid now after hip repair. (7) unwitness of fall report the accidence to her family neuro check closely monitor pt nurse report pt had unwitness fall. I assess pt. It appear pt did not have any injury from the fall. Pt denies any injury but she complaint of headache. CT of head ordered. CT of head reveals without acute findings (8) chest pain serial Troponin all negative, NSR EKG, no more chest pain reported Pt report chest pain to nurse. I assess pt. Pt's vital stable. It seems pt did not have cardiac distress. First troponin is negative. EKG is NSR. Pt is ordered O2 supplement, Nitro PRN, Morphin PRN. Pt denies any more chest pain later. serial Troponin is ordered tele and vital monitor pt is Bid Aspirin 325mg now. Pt's CADTH score is 2 (9) agitation and confused pt seems better on this morning. pt was given Zyprexa on last night neurol check, close monitor, support pt became agitated, and confused, violation behaviour to nurse. pt is on restraint. pt will be re-assessed as protocol Qualifiers: Encounter type: initial encounter Fracture type: closed Laterality: left Qualified Code(s): S72.002A - Fracture of unspecified part of neck of left femur, initial encounter for closed fracture
[2017-05-23] MEDS: SODIUM CHLORIDE FLUSH 0.9% 10 ML SYRINGE IVP SCH ×2 (14:21→23:31)
[2017-05-23] MEDS: ZOLPIDEM 5 MG TABLET PO PRN (23:43)
[2017-05-24] MEDS: LEVOTHYROXINE 75 MCG TABLET PO SCH (05:59)
[2017-05-24] MEDS: SODIUM CHLORIDE FLUSH 0.9% 10 ML SYRINGE IVP SCH ×3 (05:59→20:31)
[2017-05-24] MEDS: SENNA 8.6 MG TABLET PO SCH (08:53)
[2017-05-24] MEDS: POLYETHYLENE GLYCOL 3350 17 GM PACKET PO SCH (08:53)
[2017-05-24] MEDS: diltiaZEM CD 120 MG CAPSULE PO SCH (08:53)
[2017-05-24] MEDS: FAMOTIDINE 20 MG TABLET PO SCH (08:54)
[2017-05-24] MEDS: AZITHROMYCIN 250 MG TABLET PO SCH (08:54)
[2017-05-24] MEDS: ACETAMINOPHEN 325 MG TABLET PO PRN (08:54)
[2017-05-24] MEDS: DOCUSATE SODIUM 250 MG CAPSULE PO SCH (08:55)
[2017-05-24] MEDS: MULTIVITAMIN TABLET PO SCH (08:55)
[2017-05-24] MEDS: DONEPEZIL 5 MG TABLET PO SCH (08:55)
[2017-05-24] MEDS: ASPIRIN 325 MG TABLET PO SCH ×2 (08:56→20:30)
--- NOTE | 2017-05-24 11:15 | PROVIDER PROGRESS NOTE ---
Subjective - Prog Note Date Prog Note Date: 05/24/17 Prog Note Time: 11:13 - Subjective Pt reports feeling: Improved (Sleeping comfortably) Objective - Vital Signs/Intake & Output Vital Signs: Vital Signs x48h Temp Pulse Resp BP BP Pulse Ox 05/24/17 08:51 36.3 C L 68 18 123/90 H 98 05/24/17 05:00 36.6 C 103 H 18 127/71 97 Intake & Output: Intake & Output 05/21/17 05/22/17 05/23/17 05/24/17 23:59 23:59 23:59 23:59 Intake Total 950 1335 680 350 Balance 950 1335 680 350 - Lab Results Fish Bones: 05/23/17 05:14 05/23/17 05:14 - Other Results/Comments Other Results/Comments: EXAM: Unchanged Assessment/Plan - Problem List (1) Femoral neck fracture Impression: satis post op PLAN: To SNF today or tomorrow. Follow up in 2 weeks in ortho clinic for SR and XR. ASA for two weeks. Continue walker ambulation - WBAT on le3ft Qualifiers: Encounter type: initial encounter Fracture type: closed Laterality: left Qualified Code(s): S72.002A - Fracture of unspecified part of neck of left femur, initial encounter for closed fracture
--- NOTE | 2017-05-24 13:24 | PROVIDER PROGRESS NOTE ---
Subjective - Prog Note Date Prog Note Date: 05/24/17 Prog Note Time: 09:00 - Subjective Pt reports feeling: No change Subjective: Jessica was quite enjoyable and interactive sitting in her bedside recliner with her standing as he was ready to return home. She denies pain, SOB , chest pain or decreased appetite when asked. She was not combative as staff reported earlier as recent as yesterday. She has not required wrist restraints on this shift, but mild "sun downers" was noted. Zyrexa PO x1 was given with appropriate response of decreased impulsiveness. Current Medications - Current Medications Current Medications: Active Medications Acetaminophen (Tylenol) 650 - 975 mg PO Q4HR PRN PRN Reason: PAIN Last Admin: 05/24/17 08:54 Dose: 975 mg Aspirin (Hao) 325 mg PO BID [facility] Last Admin: 05/24/17 08:56 Dose: 325 mg Azithromycin (Zithromax) 250 mg PO DAILY [facility] Last Admin: 05/24/17 08:54 Dose: 250 mg Diltiazem HCl (Cardizem Cd) 120 mg PO DAILY [facility] Last Admin: 05/24/17 08:53 Dose: 120 mg Diphenhydramine HCl (Benadryl Inj) 25 mg IVP Q6H PRN PRN Reason: Allergy Symptoms Last Admin: 05/22/17 23:42 Dose: 25 mg Docusate Sodium (Colace 100mg Capsule) 100 mg PO BID PRN PRN Reason: Constipation Last Admin: 05/21/17 09:29 Dose: 100 mg Docusate Sodium (Colace 250mg Capsule) 250 - 500 mg PO DAILY [facility] Last Admin: 05/24/17 08:55 Dose: 250 mg Donepezil HCl (Aricept) 5 mg PO DAILY [facility] Last Admin: 05/24/17 08:55 Dose: 5 mg Famotidine (Pepcid) 20 mg PO DAILY [facility] Last Admin: 05/24/17 08:54 Dose: 20 mg Acetaminophen (Ofirmev) 100 mls @ 400 mls/hr IV Q6HR PRN PRN Reason: PAIN Last Infusion: 05/21/17 06:00 Dose: Infused Levothyroxine Sodium (Synthroid) 75 mcg PO QDAC [facility] Last Admin: 05/24/17 05:59 Dose: 75 mcg Lorazepam (Ativan Inj (Vial)) 0.5 mg IVP Q2H PRN PRN Reason: Anxiety Last Admin: 05/22/17 22:30 Dose: 0.5 mg Morphine Sulfate (Morphine (Carpuject)) 2 mg IVP Q2HR PRN PRN Reason: Pain 8 to 10 Last Admin: 05/22/17 22:30 Dose: 2 mg Multivitamins (Theragran) 1 tab PO DAILYWM [facility] Last Admin: 05/24/17 08:55 Dose: 1 tab Nitroglycerin (Nitrostat) 0.4 mg SL Q5MIN PRN PRN Reason: Chest Pain Last Admin: 05/22/17 15:15 Dose: 0.4 mg Ondansetron HCl (Zofran Inj) 4 mg IVP Q6HR PRN PRN Reason: Nausea / Vomiting Last Admin: 05/18/17 19:09 Dose: 4 mg Oxycodone/Acetaminophen (Percocet 5 Mg/325 Mg) 1 tab PO Q4HR PRN PRN Reason: PAIN Last Admin: 05/22/17 08:58 Dose: 1 tab Polyethylene Glycol (Miralax) 17 gm PO DAILY [facility] Last Admin: 05/24/17 08:53 Dose: 17 gm Prochlorperazine Edisylate (Compazine Inj) 10 mg IVP Q6HR PRN PRN Reason: Nausea / Vomiting Senna (Senokot) 17.2 mg PO Q12H PRN PRN Reason: Constipation Last Admin: 05/22/17 09:00 Dose: 17.2 mg Senna (Senokot) 8.6 - 17.2 mg PO DAILY [facility] Last Admin: 05/24/17 08:53 Dose: 17.2 mg Sodium Chloride (Normal Saline Flush 0.9%) 10 ml IVP Q8HR [facility] Last Admin: 05/24/17 05:59 Dose: Not Given Sodium Chloride (Normal Saline Flush 0.9%) 10 ml IVP PRN PRN PRN Reason: NEEDED PER PROVIDER ORDERS Last Admin: 05/21/17 06:15 Dose: 10 ml Zolpidem Tartrate (Ambien) 5 mg PO QPM PRN PRN Reason: Insomnia Last Admin: 05/23/17 23:43 Dose: 5 mg Levothyroxine Sodium [Levoxyl] 75 mcg PO QDAC 08/14/13 Multivitamin [Multi-Vitamin Daily] 1 tab PO DAILY 04/07/14 ALPRAZolam [Alprazolam] 0.25 mg PO BID PRN 05/19/17 Donepezil [Aricept] 5 mg PO DAILY 05/19/17 Objective - Vital Signs/Intake & Output Reviewed Vital Signs: Yes Vital Signs: Vital Signs x48h Temp Pulse Resp BP Pulse Ox 05/24/17 13:00 36.6 C 82 16 93/60 96 05/24/17 08:51 36.3 C L 68 18 123/90 H 98 Intake & Output: Intake & Output 05/21/17 05/22/17 05/23/17 05/24/17 23:59 23:59 23:59 23:59 Intake Total 950 1335 680 350 Balance 950 1335 680 350 - Objective General Appearance: positive: No acute distress, Alert Eyes Bilateral: positive: Normal inspection, PERRL ENT: positive: ENT inspection nml, Pharynx nml, No signs of dehydration Neck: positive: Nml inspection, Thyroid nml, No JVD, Trachea midline Respiratory: positive: Chest non-tender, No respiratory distress, Other ( diminished) Cardiovascular: positive: No gallop, Irregularly irregular, Systolic murmur, Decreased pulse(s) Peripheral Pulses: 1+ Radial (R), 1+ Radial (L) Abdomen: positive: Non-tender, No organomegaly, Nml bowel sounds, No distention , Other (soft) Back: positive: Nml inspection Skin: positive: No rash, Warm, Dry Extremities: positive: Non-tender, Full ROM, Nml appearance, Pedal edema (mild, dependent) Neurologic/Psychiatric: positive: Disoriented to time, Weakness, Sensory loss, Depressed mood/affect Reflexes: Bicep (R): 2+, Bicep (L): 2+ - Lab Results Fish Bones: 05/23/17 05:14 05/23/17 05:14 - Diagnostic Imaging Diagnostic Imaging Results: positive: Prelim report reviewed, Final report reviewed Assessment/Plan - Problem List (1) Dementia Impression: Patient was previously on Neuro-checks, that have been discontinued due to vast improvement. Plan: Continue home medications of home Aricept. Continue frequent nursing care. (2) Fall against object Impression: Patient had a witnessed fall in which she sustained a fracture of her femur that has been repaired by Dr. Ayoub. Plan: Fall precautions. (3) Hypothyroidism Impression: Patient's most recent TSH was 1.30 and takes Synthroid 75 at home. Plan: Continue current treatment and plan to monitor TSH every ~6 weeks. (4) Paroxysmal atrial fibrillation Impression: Patient has a known history of this, but cannot be adequately anticoagulanted due to high risk of falls with injury. Plan: Continue to monitor heart rate with vital signs. (5) Fall during current hospitalization Impression: Patient sustained an accidental fall shortly post-op, but was free from injury. Previously patient required wrist restraints, but today has not. Plan: Continue fall precautions.
[2017-05-24] MEDS: OLANZapine ODT 5 MG TABLET TL SCH (18:38)
[2017-05-24] MEDS ORDERED: OLANZapine ODT 5 MG TABLET TL SCH (19:00)
[2017-05-24] MEDS: ZOLPIDEM 5 MG TABLET PO PRN (20:30)
[2017-05-25] MEDS: oxyCOD/ACETAMIN 5 MG/325 MG TABLET PO PRN ×4 (02:23→23:31)
[2017-05-25] MEDS: SODIUM CHLORIDE FLUSH 0.9% 10 ML SYRINGE IVP SCH ×3 (05:27→20:07)
[2017-05-25] MEDS: LEVOTHYROXINE 75 MCG TABLET PO SCH (06:17)
[2017-05-25] MEDS: POLYETHYLENE GLYCOL 3350 17 GM PACKET PO SCH (07:49)
[2017-05-25] MEDS: AZITHROMYCIN 250 MG TABLET PO SCH (07:50)
[2017-05-25] MEDS: OLANZapine ODT 5 MG TABLET TL SCH (07:50)
[2017-05-25] MEDS: DONEPEZIL 5 MG TABLET PO SCH (07:51)
[2017-05-25] MEDS: MULTIVITAMIN TABLET PO SCH (07:52)
[2017-05-25] MEDS: ASPIRIN 325 MG TABLET PO SCH ×2 (07:52→20:07)
[2017-05-25] MEDS: FAMOTIDINE 20 MG TABLET PO SCH (07:52)
[2017-05-25] MEDS: SENNA 8.6 MG TABLET PO SCH (07:54)
[2017-05-25] MEDS: DOCUSATE SODIUM 250 MG CAPSULE PO SCH (07:54)
--- NOTE | 2017-05-25 09:04 | PROVIDER PROGRESS NOTE ---
Subjective - Prog Note Date Prog Note Date: 05/25/17 Prog Note Time: 09:04 - Subjective Pt reports feeling: No change Subjective: Jessica seems comfortable and offers no complaints. Her was visiting earlier today. Current Medications - Current Medications Current Medications: Active Medications Acetaminophen (Tylenol) 650 - 975 mg PO Q4HR PRN PRN Reason: PAIN Last Admin: 05/24/17 08:54 Dose: 975 mg Aspirin (Hao) 325 mg PO BID [facility] Last Admin: 05/25/17 07:52 Dose: 325 mg Azithromycin (Zithromax) 250 mg PO DAILY [facility] Last Admin: 05/25/17 07:50 Dose: 250 mg Diltiazem HCl (Cardizem Cd) 120 mg PO DAILY [facility] Last Admin: 05/24/17 08:53 Dose: 120 mg Diphenhydramine HCl (Benadryl Inj) 25 mg IVP Q6H PRN PRN Reason: Allergy Symptoms Last Admin: 05/22/17 23:42 Dose: 25 mg Docusate Sodium (Colace 100mg Capsule) 100 mg PO BID PRN PRN Reason: Constipation Last Admin: 05/21/17 09:29 Dose: 100 mg Docusate Sodium (Colace 250mg Capsule) 250 - 500 mg PO DAILY [facility] Last Admin: 05/25/17 07:54 Dose: Not Given Donepezil HCl (Aricept) 5 mg PO DAILY [facility] Last Admin: 05/25/17 07:51 Dose: 5 mg Famotidine (Pepcid) 20 mg PO DAILY [facility] Last Admin: 05/25/17 07:52 Dose: 20 mg Acetaminophen (Ofirmev) 100 mls @ 400 mls/hr IV Q6HR PRN PRN Reason: PAIN Last Infusion: 05/21/17 06:00 Dose: Infused Levothyroxine Sodium (Synthroid) 75 mcg PO QDAC [facility] Last Admin: 05/25/17 06:17 Dose: 75 mcg Morphine Sulfate (Morphine (Carpuject)) 2 mg IVP Q2HR PRN PRN Reason: Pain 8 to 10 Last Admin: 05/22/17 22:30 Dose: 2 mg Multivitamins (Theragran) 1 tab PO DAILYWM [facility] Last Admin: 05/25/17 07:52 Dose: 1 tab Nitroglycerin (Nitrostat) 0.4 mg SL Q5MIN PRN PRN Reason: Chest Pain Last Admin: 05/22/17 15:15 Dose: 0.4 mg Olanzapine (Zyprexa Odt) 5 mg TL QPM [facility] Ondansetron HCl (Zofran Inj) 4 mg IVP Q6HR PRN PRN Reason: Nausea / Vomiting Last Admin: 05/18/17 19:09 Dose: 4 mg Ondansetron HCl (Zofran Odt) 4 mg TL Q4HR PRN PRN Reason: Nausea / Vomiting Last Admin: 05/25/17 10:14 Dose: 4 mg Oxycodone/Acetaminophen (Percocet 5 Mg/325 Mg) 1 tab PO Q4HR PRN PRN Reason: PAIN Last Admin: 05/25/17 06:17 Dose: 1 tab Polyethylene Glycol (Miralax) 17 gm PO DAILY [facility] Last Admin: 05/25/17 07:49 Dose: 17 gm Prochlorperazine Edisylate (Compazine Inj) 10 mg IVP Q6HR PRN PRN Reason: Nausea / Vomiting Senna (Senokot) 17.2 mg PO Q12H PRN PRN Reason: Constipation Last Admin: 05/22/17 09:00 Dose: 17.2 mg Senna (Senokot) 8.6 - 17.2 mg PO DAILY [facility] Last Admin: 05/25/17 07:54 Dose: Not Given Sodium Chloride (Normal Saline Flush 0.9%) 10 ml IVP Q8HR [facility] Last Admin: 05/25/17 07:54 Dose: Not Given Sodium Chloride (Normal Saline Flush 0.9%) 10 ml IVP PRN PRN PRN Reason: NEEDED PER PROVIDER ORDERS Last Admin: 05/21/17 06:15 Dose: 10 ml Zolpidem Tartrate (Ambien) 5 mg PO QPM PRN PRN Reason: Insomnia Last Admin: 05/24/17 20:30 Dose: 5 mg Levothyroxine Sodium [Levoxyl] 75 mcg PO QDAC 08/14/13 Multivitamin [Multi-Vitamin Daily] 1 tab PO DAILY 04/07/14 ALPRAZolam [Alprazolam] 0.25 mg PO BID PRN 05/19/17 Donepezil [Aricept] 5 mg PO DAILY 05/19/17 Objective - Vital Signs/Intake & Output Reviewed Vital Signs: Yes Intake & Output: Intake & Output 05/22/17 05/23/17 05/24/17 05/25/17 23:59 23:59 23:59 23:59 Intake Total 1335 636 759 9819 Balance 1335 419 851 2511 - Objective General Appearance: positive: No acute distress, Anxious, Lethargic Eyes Bilateral: positive: Normal inspection, PERRL ENT: positive: ENT inspection nml, Pharynx nml, No signs of dehydration Neck: positive: Nml inspection, Thyroid nml, No JVD, Trachea midline Respiratory: positive: Chest non-tender, No respiratory distress, Breath sounds nml Cardiovascular: positive: Regular rate & rhythm, No gallop, Decreased pulse(s) Peripheral Pulses: 1+ Radial (R), 1+ Radial (L) Abdomen: positive: Non-tender, No organomegaly, Nml bowel sounds, No distention Back: positive: Nml inspection Skin: positive: No rash, Warm, Dry Extremities: positive: Non-tender, Full ROM, Nml appearance, Pedal edema Neurologic/Psychiatric: positive: Disoriented to place, Disoriented to time, Weakness, Sensory loss, Slurred/abnml speech, Depressed mood/affect Reflexes: Bicep (R): 2+, Bicep (L): 2+ - Lab Results Fish Bones: 05/23/17 05:14 05/23/17 05:14 - Diagnostic Imaging Diagnostic Imaging Results: positive: Final report reviewed Assessment/Plan - Problem List (1) Dementia Impression: Patient was previously on Neuro-checks, that have been discontinued due to vast improvement. Today, her daily Zyprexa was given this morning, rather than at HS which was intended. Consequently, she was not able to participate in PT due to lethargy and inability to follow directions. Plan: Continue Aricept and Zyprea. Continue frequent nursing care. (2) Fall against object Impression: Patient had a witnessed fall in which she sustained a fracture of her femur that has been repaired by Dr. Ayoub. Plan: Fall precautions. (3) Hypothyroidism Impression: Patient's most recent TSH was 1.30 and takes Synthroid 75 at home. Plan: Continue current treatment and plan to monitor TSH every ~6 weeks. (4) Paroxysmal atrial fibrillation Impression: Patient has a known history of this, but cannot be adequately anticoagulanted due to high risk of falls with injury. Patient was previously on telemetry monitoring that was unremarkable, which has now been discontinued. Plan: Continue to monitor heart rate with vital signs. (5) Fall during current hospitalization Impression: Patient sustained an accidental fall shortly post-op, but was free from injury. Previously patient required wrist restraints. She has now been free from restraints for over 48 hours. Her mental status is generally improved, but as mentioned earlier, her Zyprexa dose was given early today, so she has been more altered today. Plan: Continue fall precautions.
[2017-05-25] MEDS ORDERED: ONDANSETRON ODT 4 MG TABLET TL PRN (09:16)
--- NOTE | 2017-05-25 11:07 | PROVIDER PROGRESS NOTE ---
Subjective - Prog Note Date Prog Note Date: 05/25/17 Prog Note Time: 11:05 - Subjective Pt reports feeling: No change (No new pain complaints) Objective - Vital Signs/Intake & Output Vital Signs: Vital Signs x48h Temp Pulse Resp BP Pulse Ox 05/25/17 09:20 36.5 C 61 17 123/68 99 Intake & Output: Intake & Output 05/22/17 05/23/17 05/24/17 05/25/17 23:59 23:59 23:59 23:59 Intake Total 1335 838 443 7263 Balance 1335 924 961 1211 - Lab Results Fish Bones: 05/23/17 05:14 05/23/17 05:14 - Other Results/Comments Other Results/Comments: EXAM: In bathroom. No problems re: dressing or wound. Ambulating in room with minimal problems Assessment/Plan - Problem List (1) Femoral neck fracture Impression: satis post op PERRY: Mobize as tolerated. Upon discharge/SNF transfer, follow up in ortho clinic in 2 weeks for SR and XR. Walker ambulate -WBAT on left. Aspirin x 2 weeks Qualifiers: Encounter type: initial encounter Fracture type: closed Laterality: left Qualified Code(s): S72.002A - Fracture of unspecified part of neck of left femur, initial encounter for closed fracture
[2017-05-25] MEDS: ACETAMINOPHEN 325 MG TABLET PO PRN (16:12)
[2017-05-25] MEDS: diphenhydrAMINE INJ 50 MG/ML VIAL IVP PRN (20:07)
[2017-05-25] MEDS ORDERED: OLANZapine ODT 5 MG TABLET TL SCH (21:00)
[2017-05-25] MEDS: ZOLPIDEM 5 MG TABLET PO PRN (22:59)
[2017-05-26] MEDS: SODIUM CHLORIDE FLUSH 0.9% 10 ML SYRINGE IVP SCH (01:42)
[2017-05-26] MEDS: diphenhydrAMINE INJ 50 MG/ML VIAL IVP PRN (01:42)
[2017-05-26] MEDS: DOCUSATE SODIUM 250 MG CAPSULE PO SCH (08:52)
[2017-05-26] MEDS: SENNA 8.6 MG TABLET PO SCH (08:52)
[2017-05-26] MEDS: POLYETHYLENE GLYCOL 3350 17 GM PACKET PO SCH (08:52)
--- NOTE | 2017-05-26 10:44 | PROVIDER PROGRESS NOTE ---
Subjective - Prog Note Date Prog Note Date: 05/26/17 Prog Note Time: 10:41 - Subjective Pt reports feeling: Improved (Less confused or agitated today) Objective - Vital Signs/Intake & Output Intake & Output: Intake & Output 05/23/17 05/24/17 05/25/17 05/26/17 23:59 23:59 23:59 23:59 Intake Total 958 014 9325 340 Balance 792 538 0879 340 - Lab Results Fish Bones: 05/23/17 05:14 05/23/17 05:14 - Other Results/Comments Other Results/Comments: EXAM: Dressing ok. Moves toes well. No pain with hip motion. Has been up walking in room without problems Assessment/Plan - Problem List (1) Femoral neck fracture Impression: satis post op PLAN: To SNF when medical okay. WBAT on left Aspirin for 2 weeks. Follow up in 2 weeks in clinic for SR and XR. Qualifiers: Encounter type: initial encounter Fracture type: closed Laterality: left Qualified Code(s): S72.002A - Fracture of unspecified part of neck of left femur, initial encounter for closed fracture
[2017-05-26] MEDS: LEVOTHYROXINE 75 MCG TABLET PO SCH (11:01)
[2017-05-26] MEDS: FAMOTIDINE 20 MG TABLET PO SCH (11:01)
[2017-05-26] MEDS: AZITHROMYCIN 250 MG TABLET PO SCH (11:01)
[2017-05-26] MEDS: ASPIRIN 325 MG TABLET PO SCH (11:02)
[2017-05-26] MEDS: MULTIVITAMIN TABLET PO SCH (11:02)
[2017-05-26] MEDS: diltiaZEM CD 120 MG CAPSULE PO SCH (11:02)
[2017-05-26] MEDS: DONEPEZIL 5 MG TABLET PO SCH (11:03)
--- NOTE | 2017-05-26 12:13 | Discharge Plan ---
Discharge Plan Disposition: 03 SNF DC/Xfer Condition: Good Prescriptions: OLANZapine ODT [Zyprexa Odt] 5 mg TL QPM #30 tablet Diet: Regular Shower Restrictions: No Driving Restrictions: Yes Assistance Devices: Walker Weight Bearing: Full Weight No Smoking: If you smoke, Please STOP! Call for help.
--- NOTE | 2017-05-26 12:20 | Discharge Plan ---
Discharge Plan for SNF / [facility] - DC Plan and Transition Orders Disposition: 03 SNF DC/Xfer Condition: Good SNF Transition Orders: Admit to: [facility] under the care of Dr. Angelo Rodriguez DO Discharge Diagnosis: Fall, status post femoral neck repair, hypothyroidism, paroxysmal atrial fibrillation. Medicare Certification: I certify that [facility] is medically necessary on a continuing basis for any of the conditions for which she/he is receiving care during hospitalization. Notify PCP of admission and forward orders to primary provider for signature. Weight on admission and monthly. Call PCP immediately if weight increases by 10 pounds or if patient develops dyspnea, chest pain/tightness or edema. House Bowel Program: yes If no BM after 2 days, nurse may give M.O.M. 30ml PO PRN and /or ducolax Supp 1 IA and /or SHARDA 250mg P.O., and/or senna 1-2 tabs PO. On day 3 nurse may give repeat above order until residents constipation is resolved. Immunizations: Annual Influenza Vaccine: yes.(between Dec 23 and July 22. ) Unless allergy or already given Two-Step PPD: yes per [facility] [phone] or appropriate documentation of approved exceptions Treatments & Other Orders: PT/OT and speech therapy as needed. Patient has been doing very well ambulating with staff using a wheeled walker. Oxygen Orders: Patient has not required oxygen. Lab Tests or X-Rays Orders: Not indicated. Orthopedic Orders: Dr. Joo Ayoub MD- To SNF when medical okay. WBAT on left Aspirin for 2 weeks. Follow up in 2 weeks in clinic for suture removal and XR. Medications: PLEASE REFER TO THE DISCHARGE MEDICATION LIST. Allergies and Adverse Reactions: Allergies Allergy/AdvReac Type Severity Reaction Status Date / Time codeine AdvReac Intermediate gi problems Verified 05/18/17 14:32 - Medications New Prescriptions: ALPRAZolam [Alprazolam] 0.25 mg PO BID PRN #30 tablet PRN Reason: Anxiety OLANZapine ODT [Zyprexa Odt] 5 mg TL QPM #30 tablet
--- NOTE | 2017-05-26 12:30 | DISCHARGE SUMMARY ---
Discharge Summary Admit Date: 05/18/17 Discharge Date: 05/26/17 Discharging Provider: SANDY Tejeda Primary Care Provider: Angelo Rodriguez DO Code Status: Attempt Resuscitation Condition at Discharge: Good Discharge Disposition: 03 SNF DC/Xfer Discharge Facility Name: [facility] - DIAGNOSES Admission Diagnoses: Fracture of unspecified part of neck of unspecified femur, initial encounter for closed fracture (S72.009A) Striking against unspecified object with subsequent fall, initial encounter ( W18.00XA) Hypothyroidism, unspecified (E03.9) Unspecified dementia without behavioral disturbance (F03.90) Discharge Diagnoses with Status of Each Condition: Femur fracture, left (S72.92XA) repaired by Dr. Ayoub, [place]. Fall against object (W18.00XA) chronic, fall precautions. Hypothyroidism (E03.9) chronic, stable. Dementia (F03.90) chronic, stable. Paroxysmal A-fib (I48.0) chronic, stable. Fall during current hospitalization (W19.XXXA) ongoing concerns, fall precautions. - HPI History of Present Illness: Jessica Felder is a 87-year-old female with a past medical history of Dementia, Anxiety, hypothyroidism, osteoarthritis, who presented to the ER for evaluation and treatment after sustaining an injury from a fall at home. Patient has been confused after pain medication, dilaudid was given. She can not provide any medical history at the time of admission. A call was made to , Jered who reports patient tripped and fell on her tailbone area with no other injuries. Patient has since not been able to walk with extreme pain located on left hip and left femur. 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 Patient is afebrile, Lab tests are unremarkable. A CT of pelvis, Xray of femur reveals impacted subcapital femoral neck fracture. Dr. Ayoub is called and will plan for surgery on tomorrow morning. - HOSPITAL COURSE Hospital Course: The following problems/diagnoses were prevalent during this hospital stay: Dementia: Patient was previously on Neuro-checks, that have been discontinued due to vast improvement. She was started on daily Zyprexa that will be scheduled at . Patient continues on Aricept and frequent nursing care. Fall against object: Patient had a witnessed fall in which she sustained a fracture of her femur that has been repaired by Dr. Ayoub. Patient was on fall precautions during her stay and remains with gait belt and a wheeled walker with staff. She is now status post left femur repair by Dr. Ayoub. She remains with a dry dressing and sutures that can be removed in about 2 weeks with follow up x-rays. Hypothyroidism: Patient's most recent TSH was 1.30 and takes Synthroid 75 at home. Patient was continued on current home dose of PO synthroid. Recommend to monitor TSH every ~6 weeks. Paroxysmal atrial fibrillation: Patient has a known history of this, but cannot be adequately anticoagulanted due to high risk of falls with injury. Patient was previously on telemetry monitoring that was unremarkable, which has now been discontinued. Patient's vital signs were closely monitored for this stay. Fall during current hospitalization: Patient sustained an accidental fall shortly post-op, but was free from injury. Previously patient required wrist restraints. She has now been free from restraints for over 72 hours. Her mental status is generally improved and she continues on Zyprexa and Aricept. Patient was continued on fall precautions. Disposition: Staff from [facility] arrived to evaluate appropriate placement, who accepted. Patient was transferred in stable condition via company transport and Dr. Angelo Rodriguez DO who will assume care. Discharge paperwork was given, in addition a hard-script for Alprazolam PO. , Jered was present for exam, interview and discharge process. - ALLERGIES Allergies/Adverse Reactions: Allergies Allergy/AdvReac Type Severity Reaction Status Date / Time codeine AdvReac Intermediate gi problems Verified 05/18/17 14:32 - MEDICATIONS Home Medications: Ambulatory Orders Medication Instructions Recorded Confirmed Levothyroxine Sodium [Levoxyl] 75 mcg PO QDAC 08/14/13 05/19/17 Multivitamin [Multi-Vitamin Daily] 1 tab PO DAILY 04/07/14 05/19/17 Donepezil [Aricept] 5 mg PO DAILY 05/19/17 05/19/17 ALPRAZolam [Alprazolam] 0.25 mg PO BID PRN #30 tablet 05/26/17 OLANZapine ODT [Zyprexa Odt] 5 mg TL QPM #30 tablet 05/26/17 - PHYSICAL EXAM AT DISCHARGE General Appearance: positive: No acute distress, Alert Eyes Bilateral: positive: Normal inspection, PERRL ENT: positive: ENT inspection nml, Pharynx nml, No signs of dehydration Neck: positive: Nml inspection, Thyroid nml, No JVD, Trachea midline Respiratory: positive: Chest non-tender, No respiratory distress, Breath sounds nml Cardiovascular: positive: No murmur, No gallop, Irregularly irregular Peripheral Pulses: positive: 2+ Abdomen: positive: Non-tender, No organomegaly, Nml bowel sounds, No distention Back: positive: Nml inspection Skin: positive: No rash, Warm, Dry Extremities: positive: Non-tender, Full ROM, Nml appearance, No pedal edema, Joint swelling Neurologic/Psychiatric: positive: Disoriented to place, Disoriented to time, Weakness, Sensory loss, Slurred/abnml speech, Depressed mood/affect Reflexes: Bicep (R): 2+, Bicep (L): 2+ - LABS Result Diagrams: 05/23/17 05:14 05/23/17 05:14 - DIAGNOSTIC IMAGING Diagnostic Imaging Results: Final report reviewed Diagnostic Imaging Results Comments: Head CT post-fall 05/22/17: FINDINGS: The ventricles and sulci demonstrate mild symmetric enlargement, compatible with atrophy. The basilar cisterns are patent. There is no evidence of hemorrhage, mass effect, or midline shift. The visualized orbital contents and paranasal sinuses are unremarkable. IMPRESSION: MILD ATROPHY. NO EVIDENCE OF ACUTE HEMORRHAGE OR MASS EFFECT. Pelvis x-ray post-op 05/19/17: FINDINGS: Two intraoperative matrix view of the left hip demonstrate two screws transfixing the impacted left femoral neck fracture. Ten seconds of fluoroscopy time was provided to Dr. Ayoub; two spot images obtained. IMPRESSION: INTRAOPERATIVE IMAGING OF LEFT HIP FRACTURE FIXATION. Chest x-ray 05/18/17: FINDINGS: Lungs/Pleura: No focal opacities evident. No pleural effusion. No pneumothorax. Bronchial wall thickening. Mediastinum: Within exam limitations, the cardiomediastinal contour is normal. Other: None. IMPRESSION: 1. Nonspecific bronchial wall thickening could represent bronchitis or reactive airways disease. 2. No effusions or pneumothorax. No focal consolidation. CT pelvis 05/18/17: FINDINGS: Bones: There is impacted left subcapital femoral neck fracture. No other focal bony abnormalities are seen. Sacroiliac Joints: No widening, erosions, or sclerosis. Symphysis Pubis: There is mild osteitis pubis. Right Hip: No evidence of dislocation. No significant degenerative disease. Left Hip: No evidence of dislocation. No significant degenerative disease. Musculature: Normal. No fatty atrophy. Pelvic Cavity: The visualized bowel, bladder, and reproductive organs are unremarkable on this noncontrast exam. Other: No lymphadenopathy. No free air or free fluid. The other visualized soft tissues are unremarkable. IMPRESSION: There is impacted left subcapital femoral neck fracture. No evidence of dislocation. 2-view Femur 05/18/17: FINDINGS: Bones: There is impacted subcapital femoral neck fracture. No evidence of distal fracture. Joints: No evidence of dislocation. Soft Tissues: Normal. No soft tissue swelling. IMPRESSION: 1. Impacted subcapital femoral neck fracture. 2. No evidence of distal fracture. - FOLLOW UP Follow Up: Care to continue at [facility] and Dr. Angelo Rodriguez, DO to assume PCP care. - TIME SPENT Time Spent in Discharge (Minutes): 45
[2017-05-26 12:40] VITALS: BP 133/58
== END 2017-05-26 13:06 | DRG 481 ==
LOC: ED 14:21 → MS2 18:10
PROVIDERS: ADMIT Nurse Practitioner Gerontology; ATTEND Nurse Practitioner
PROC: 0QS734Z Reposition Left Upper Femur with Internal Fixation Device, Percutaneous Approach (ICD-10-PCS; principal; 2017-05-19 08:30)
DX: S72.012A Unspecified intracapsular fracture of left femur, initial encounter for closed fracture (principal); F05 Delirium due to known physiological condition; Y92.410 Unspecified street and highway as the place of occurrence of the external cause; I48.0 Paroxysmal atrial fibrillation; R51 Headache; W19.XXXA Unspecified fall, initial encounter; Y92.238 Other place in hospital as the place of occurrence of the external cause; R07.9 Chest pain, unspecified; E03.9 Hypothyroidism, unspecified; F03.90 Unspecified dementia, unspecified severity, without behavioral disturbance, psychotic disturbance, mood disturbance, and anxiety; F41.9 Anxiety disorder, unspecified; W01.0XXA Fall on same level from slipping, tripping and stumbling without subsequent striking against object, initial encounter; Y92.009 Unspecified place in unspecified non-institutional (private) residence as the place of occurrence of the external cause; M19.90 Unspecified osteoarthritis, unspecified site; Z96.659 Presence of unspecified artificial knee joint; Z91.81 History of falling; Z78.1 Physical restraint status
CPT/HCPCS: 36415; 70450; 71045; 72192; 80053; 81001; 81003; 83690; 83735; 84439; 84443; 84484; 85014; 85018; 85025; 85610; 85730; 87086; 93005; 96361; 96374; 96375; 96376; 99284; 99285